=== PATIENT | male | born 1965 | race Hispanic/Latino ===

== ENCOUNTER 2024-07-08 19:03 | Emergency (ER) | payer OTHER ==
--- OUTSIDE RECORDS SUMMARY | 2024-07-08 19:08 | XMS REPORT | Continuity of Care Document ---
Author Name Unknown Address [address] [facility] [address] [place] [address] [facility] thconnect Address [address] [facility] [address] [place] [address] Care Team Providers Care Traffic Control Signaler Name Role Phone PCP, PATIENT DOES NOT HAVE A Primary Care Physic celi Unavailable KAYDEN MITTAL Attending Clinician Unavail able KAYDEN MITTAL Attending Clinician Unavail able Kayden Mittal MD Attending Clinician [phone] KAYDEN MITTAL Admitting Clinician Unavail able Payers Payer Name Policy Type Policy Number Effective Date Expirati on Date Source PERRI Agustin/ KATHY LEZAMA [id number] 2023 00:00:00 Allergies, Adverse Reactions, Alerts Allergy Name Allergy Type Status Severity Reaction(s) Onset Date Inactive Date Treating Clinician Comments Source NO KNOWN ALLERGIE S Drug Class Active [facility] Social History Social Habit Start Date Stop Date Quantity Comments Source Sexual orientation U [facility] Sex assigned at 1965 00:00:00 1965 00:00:00 [facility] Smoking Status Start Date Stop Date Source Tobacco smoking consumption unknown [facility] Medications Ordered Medication Name Filled Medication Name Start Date Stop Date Current Medication? Ordering Clinician Indication Dosage Frequency Signature (SIG) Comments Components Source Flonase Allergy Relief 50 mcg/actuati on nasal spray,suspe nsion 2023-07 2-16 00:00: 00 Yes 12mcg/a ctuatio bret Holliday Bromfed DM 2 mg-30 mg-10 mg/5 mL oral syrup 2023-07 00:00: 00 Yes 10mg/5 mL Nick Holliday azithromyci n 500 mg tablet 2023-07 00:00: 00 Yes [id number] 500mg Take 1 tablet by mouth daily. [facility] ipratropium -albuteroL (DUONEB) 0.5 mg-3 mg(2.5 mg base)/3 mL nebulizer solution 3 mL 2023-07 23:00: 00 06-14 22:18 :00 No 3mL 3 mL, Inhalation , ONCE NOW, 1 dose, On 06/14/24 at 1700, Routine [facility] magnesium sulfate in water 2 gram/50 mL (4 %) infusion 2 g 2023-07 23:00: 00 06-14 23:27 :00 No 2g 2 g, IV Piggyback, Administer over 60 Minutes, ONCE, 1 dose, On 06/14/24 at 1700, Routine [facility] azithromyci n (ZITHROMAX) tablet 500 mg 2023-07 22:15: 00 06-14 22:16 :00 No 500mg 500 mg, Oral, ONCE, 1 dose, On 06/14/24 at 1615, MARCK, Reason for Anti-Infec tive: Documented Infection, Documented Infection Site: Respirator y, Duration of Therapy: Once (ED) [facility] cefTRIAXone (ROCEPHIN) 2,000 mg in water for injection, sterile 20 mL IV Push 2023-07 22:15: 00 06-14 22:16 :00 No 2000mg 2,000 mg, Intravenou s, ONCE, 1 dose, On 06/14/24 at 1615, 20 mL, Reason for Anti-Infec tive: Empiric Therapy for Suspected Infection, Empiric Therapy Site: Respirator y, Duration of therapy: Once (ED) [facility] benzonatate (TESSALON PERLES) capsule 100 mg 2023-07 21:30: 00 06-14 21:34 :00 No 100mg 100 mg, Oral, ONCE, 1 dose, On 06/14/24 at 1530, MARCK [facility] acetaminoph en (TYLENOL) tablet 650 mg 2023-07 21:00: 00 06-14 21:09 :00 No 650mg 650 mg, Oral, ONCE, 1 dose, On 06/14/24 at 1500, MARCK [facility] NaCl 0.9% (NS) bolus infusion 1,000 mL 2023-07 21:00: 00 06-14 22:15 :00 No 1000mL at 999 mL/hr, 1,000 mL, IV Infusion, ONCE, 1 dose, On 06/14/24 at 1500, STAT [facility] benzonatate 100 mg capsule 2023-07 00:00: 00 Yes [id number] 100mg Take 1 capsule by mouth 3 (three) times daily as needed for Cough. [facility] cefdinir 300 mg capsule 2023-07 00:00: 00 06-22 05:59 :00 Yes [id number] 300mg Take 1 capsule by mouth every 12 (twelve) hours for [address] [facility] metformin 1,000 mg tablet 2023-07 00:00: 00 Yes mg Nick Holliday atorvastati n 10 mg tablet 2023-07 00:00: 00 Yes 1mg Nick Holliday lisinopril 40 mg tablet 2023-07 00:00: 00 Yes 1mg Nick Holliday Farxiga 10 mg tablet 2023-07 00:00: 00 Yes 1mg Nick Holliday glipizide 10 mg tablet 2023-07 00:00: 00 Yes 1mg Nick Holliday metformin 1,000 mg tablet 12-26 00:00: 00 Yes mg Nick Holliday atorvastati n 10 mg tablet 12-26 00:00: 00 Yes 1mg Nick Holliday lisinopril 40 mg tablet 12-26 00:00: 00 Yes 1mg Nick Holliday Farxiga 10 mg tablet 12-26 00:00: 00 Yes 1mg Nick Holliday glipizide 10 mg tablet 627 00:00: 00 Yes 1mg Nick Holliday montelukast 10 mg tablet 627 00:00: 00 Yes 1mg Nick Holliday MONTELUKAST 10MG 4-11 00:00: 00 Yes Nick Holliday montelukast 10 mg tablet 4-10 00:00: 00 Yes 1mg Nick Holliday atorvastati n 10 mg tablet 3 00:00: 00 Yes 1mg Nick Holliday Farxiga 10 mg tablet 09-26 00:00: 00 Yes 1mg Nick Holliday lisinopril 40 mg tablet 09-26 00:00: 00 Yes 1mg Nick Holliday glipizide 10 mg tablet 09-26 00:00: 00 Yes 1mg Nick Holliday USE 1 SPRAY IN EACH NOSTRIL TWICE DAILY. 2022-07 00:00: 00 Yes [id number] Nick Holliday TAKE 1 TABLET BY MOUTH DAILY 2022-07 00:00: 00 11-07 00:00 :00 No 40 Nick Holliday TAKE 1 TABLET AT BEDTIME. 2022-07 00:00: 00 11-07 00:00 :00 No 10 Nick Holliday TAKE 1 TABLET AT BEDTIME. 2022-07 00:00: 00 11-07 00:00 :00 No 10 Nick Holliday TAKE 1 TABLET BY MOUTH TWICE A DAY 2022-07 00:00: 00 11-07 00:00 :00 No 10 Nick Holliday TAKE 1 TABLET BY MOUTH EVERY MORNING 2022-07 00:00: 00 11-07 00:00 :00 No 10 Nick Holliday TAKE 5 ML EVERY 4 TO 6 HOURS NEEDED. 2022-07 00:00: 00 11-07 00:00 :00 No [id number] Nick Holliday TAKE 1 TABLET TWICE DAILY. 03-10 00:00: 00 Yes 1000 Nick Holliday TAKE 1 TABLET DAILY. 03-10 00:00: 00 2024- 05-09 00:00 :00 No 20 Nick F Mg TAKE 5 ML EVERY 4 TO 6 HOURS NEEDED. 03-10 00:00: 00 11-07 00:00 :00 No [id number] Nick F Mg TAKE 1 TABLET BY MOUTH EVERY MORNING 03-10 00:00: 00 11-07 00:00 :00 No 10 Nick F Mg TAKE 1 TABLET AT BEDTIME. 03-10 00:00: 00 11-07 00:00 :00 No 10 Nick F Mg TAKE 1 TABLET BY MOUTH TWICE A DAY 03-10 00:00: 00 11-07 00:00 :00 No 10 Nick F Mg TAKE 1 TABLET BY MOUTH DAILY 03-10 00:00: 00 11-07 00:00 :00 No 40 Nick F Mg TAKE 1 TABLET AT BEDTIME. 03-10 00:00: 00 11-07 00:00 :00 No 10 Nick F Mg TAKE 1 TABLET BY MOUTH EVERY MORNING 0 11-22 00:00: 00 11-07 00:00 :00 No 10 Nick F Mg TAKE 1 TABLET BY MOUTH DAILY 11-22 00:00: 00 11-07 00:00 :00 No 40 Nick F Mg TAKE 1 TABLET AT BEDTIME. 11-22 00:00: 00 11-07 00:00 :00 No 10 Nick F Mg TAKE 1 TABLET AT BEDTIME. - 00:00: 00 11-07 00:00 :00 No 10 Nick F Mg TAKE 1 TABLET BY MOUTH TWICE A DAY 0 -24 00:00: 00 11-07 00:00 :00 No 10 Nick F Mg TAKE 1 TABLET TWICE DAILY. -24 00:00: 00 11-07 00:00 :00 No 1000 Nick F Mg TAKE 1 TABLET BY MOUTH EVERY MORNING 0 1-21 00:00: 00 11-07 00:00 :00 No 10 Nick F Mg TAKE 5 ML EVERY 4 TO 6 HOURS NEEDED. 07-19 00:00: 00 No TAKE 2 TABLETS ON DAY 1 THEN TAKE 1 TABLET A DAY FOR 4 DAYS. 07-19 00:00: 00 No TAKE 5 ML EVERY 4 TO 6 HOURS NEEDED. 07-19 00:00: 00 11-07 00:00 :00 No Nick Holliday TAKE 2 TABLETS ON DAY 1 THEN TAKE 1 TABLET A DAY FOR 4 DAYS. 07-19 00:00: 00 11-07 00:00 :00 No Nick Sheri Holliday TAKE 1 TABLET BY MOUTH DAILY 07-18 00:00: 00 11-07 00:00 :00 No 40 Nick Sheri Holliday TAKE 1 TABLET AT BEDTIME. 07-18 00:00: 00 11-07 00:00 :00 No 10 Nick F Mg TAKE 1 TABLET TWICE DAILY. 07-18 00:00: 00 11-07 00:00 :00 No 1000 Nickbriseida Holliday TAKE 1 TABLET BY MOUTH TWICE A DAY 07-18 00:00: 00 11-07 00:00 :00 No 10 Nick Sheri Holliday TAKE 1 TABLET AT BEDTIME. 07-18 00:00: 00 11-07 00:00 :00 No 10 Nick F Mg Dose Unknown 2021-07 00:00: 00 Yes Nick F Mg Dose Unknown 2021-07 00:00: 00 Yes Nick Holliday TAKE 5 ML EVERY 4 TO 6 HOURS NEEDED. 2021-07 00:00: 00 No TAKE 2 TABLETS ON DAY 1 THEN TAKE 1 TABLET A DAY FOR 4 DAYS. 2021-07 00:00: 00 No 250 INHALE 2 PUFFS EVERY 4 TO 6 HOURS NEEDED. 2021-07 00:00: 00 11-07 00:00 :00 No [id number] Nick F Mg Dose Unknown 07-27 00:00: 00 Yes Nick F Mg Dose Unknown 07-27 00:00: 00 No lisinopril 20 mg tablet 07-27 00:00: 00 Yes 2mg Nick Holliday lisinopril 20 mg tablet 07-27 00:00: 00 No 2mg glipizide 10 mg tablet 07-27 00:00: 00 Yes 1mg Nick Holliday glipizide 10 mg tablet 07-27 00:00: 00 No 1mg Dose Unknown 07-27 00:00: 00 Yes Nick Holliday Dose Unknown 07-27 00:00: 00 No atorvastati n 10 mg tablet 07-27 00:00: 00 Yes 1mg Nick Holliday atorvastati n 10 mg tablet 07-27 00:00: 00 No 1mg fluticasone propionate 50 mcg/actuati on nasal spray,suspe nsion 07-27 00:00: 00 Yes 1mcg/ac tuation Nick Holliday fluticasone propionate 50 mcg/actuati on nasal spray,suspe nsion 07-27 00:00: 00 No 1mcg/ac tuation Bromfed DM 2 mg-30 mg-10 mg/5 mL oral syrup 07-27 00:00: 00 Yes 10mg/5 mL Nick Holliday Bromfed DM 2 mg-30 mg-10 mg/5 mL oral syrup 07-27 00:00: 00 No 10mg/5 mL Dose Unknown 07-27 00:00: 00 No lisinopril 20 mg tablet 07-27 00:00: 00 No 2mg glipizide 10 mg tablet 07-27 00:00: 00 No 1mg Dose Unknown 07-27 00:00: 00 No atorvastati n 10 mg tablet 07-27 00:00: 00 No 1mg fluticasone propionate 50 mcg/actuati on nasal spray,suspe nsion 07-27 00:00: 00 No 1mcg/ac tuation Bromfed DM 2 mg-30 mg-10 mg/5 mL oral syrup 07-27 00:00: 00 No 10mg/5 mL lisinopril 20 mg tablet 2020-07 00:00: 00 Yes 2mg Nick Holliday loratadine 10 mg tablet 2020-07 00:00: 00 Yes 1mg Nick Holliday metformin 1,000 mg tablet 2020-07 00:00: 00 Yes 1mg Nick Holliday glipizide 10 mg tablet 2020-07 00:00: 00 Yes 1mg Nick Holliday atorvastati n 10 mg tablet 2020-07 00:00: 00 Yes 1mg Nick Holliday lisinopril 20 mg tablet 2020-07 00:00: 00 No 2mg loratadine 10 mg tablet 2020-07 00:00: 00 No 1mg metformin 1,000 mg tablet 2020-07 00:00: 00 No 1mg glipizide 10 mg tablet 2020-07 00:00: 00 No 1mg atorvastati n 10 mg tablet 2020-07 00:00: 00 No 1mg lisinopril 20 mg tablet 2020-07 00:00: 00 No 2mg loratadine 10 mg tablet 2020-07 00:00: 00 No 1mg metformin 1,000 mg tablet 2020-07 00:00: 00 No 1mg glipizide 10 mg tablet 2020-07 00:00: 00 No 1mg atorvastati n 10 mg tablet 2020-07 00:00: 00 No 1mg loratadine 10 mg tablet 01-12 00:00: 00 Yes 1mg Nick Holliday lisinopril 20 mg tablet 01-12 00:00: 00 Yes 2mg Nick Holliday glipizide 10 mg tablet 01-12 00:00: 00 Yes 1mg Nick Holliday metformin 1,000 mg tablet 01-12 00:00: 00 Yes 1mg Nick Holliday atorvastati n 10 mg tablet 01-12 00:00: 00 Yes 1mg Nick Holliday fluticasone propionate 50 mcg/actuati on nasal spray,suspe nsion 01-12 00:00: 00 Yes 1mcg/ac tuation Nick Holliday Bromfed DM 2 mg-30 mg-10 mg/5 mL oral syrup 01-12 00:00: 00 Yes 10mg/5 mL Nick Holliday loratadine 10 mg tablet 01-12 00:00: 00 No 1mg lisinopril 20 mg tablet 01-12 00:00: 00 No 2mg glipizide 10 mg tablet 01-12 00:00: 00 No 1mg metformin 1,000 mg tablet 01-12 00:00: 00 No 1mg atorvastati n 10 mg tablet 01-12 00:00: 00 No 1mg fluticasone propionate 50 mcg/actuati on nasal spray,suspe nsion 01-12 00:00: 00 No 1mcg/ac tuation Bromfed DM 2 mg-30 mg-10 mg/5 mL oral syrup 01-12 00:00: 00 No 10mg/5 mL loratadine 10 mg tablet 01-12 00:00: 00 No 1mg lisinopril 20 mg tablet 01-12 00:00: 00 No 2mg glipizide 10 mg tablet 01-12 00:00: 00 No 1mg metformin 1,000 mg tablet 01-12 00:00: 00 No 1mg atorvastati n 10 mg tablet 01-12 00:00: 00 No 1mg fluticasone propionate 50 mcg/actuati on nasal spray,suspe nsion 01-12 00:00: 00 No 1mcg/ac tuation Bromfed DM 2 mg-30 mg-10 mg/5 mL oral syrup 01-12 00:00: 00 No 10mg/5 mL lisinopril 20 mg tablet 09-17 00:00: 00 Yes 2mg Nick Holliday loratadine 10 mg tablet - 00:00: 00 Yes 1mg Nick Holliday glipizide 10 mg tablet - 00:00: 00 Yes 1mg Nick Holliday metformin 1,000 mg tablet - 00:00: 00 Yes 1mg Nick Holliday atorvastati n 10 mg tablet 09-17 00:00: 00 Yes 1mg Nick Holliday fluticasone propionate 50 mcg/actuati on nasal spray,suspe nsion 09-17 00:00: 00 Yes 1mcg/ac tuation Nick Holliday Bromfed DM 2 mg-30 mg-10 mg/5 mL oral syrup 09-17 00:00: 00 Yes 10mg/5 mL Nick Holliday lisinopril 20 mg tablet 09-17 00:00: 00 No 2mg loratadine 10 mg tablet 09-17 00:00: 00 No 1mg glipizide 10 mg tablet 09-17 00:00: 00 No 1mg metformin 1,000 mg tablet 09-17 00:00: 00 No 1mg atorvastati n 10 mg tablet 09-17 00:00: 00 No 1mg fluticasone propionate 50 mcg/actuati on nasal spray,suspe nsion 09-17 00:00: 00 No 1mcg/ac tuation Bromfed DM 2 mg-30 mg-10 mg/5 mL oral syrup 09-17 00:00: 00 No 10mg/5 mL lisinopril 20 mg tablet 09-17 00:00: 00 No 2mg loratadine 10 mg tablet 09-17 00:00: 00 No 1mg glipizide 10 mg tablet 09-17 00:00: 00 No 1mg metformin 1,000 mg tablet 09-17 00:00: 00 No 1mg atorvastati n 10 mg tablet 09-17 00:00: 00 No 1mg fluticasone propionate 50 mcg/actuati on nasal spray,suspe nsion 09-17 00:00: 00 No 1mcg/ac tuation Bromfed DM 2 mg-30 mg-10 mg/5 mL oral syrup 09-17 00:00: 00 No 10mg/5 mL loratadine 10 mg tablet 2019-07 0-28 00:00: 00 Yes 1mg Nick Holliday lisinopril 20 mg tablet 2019-07 00:00: 00 Yes 2mg Nick Holliday glipizide 10 mg tablet 2019-07 00:00: 00 Yes 1mg Nick Holliday metformin 1,000 mg tablet 2019-07 00:00: 00 Yes 1mg Nick Holliday atorvastati n 10 mg tablet 2019-07 00:00: 00 Yes 1mg Nick Holliday fluticasone propionate 50 mcg/actuati on nasal spray,suspe nsion 2019-07 00:00: 00 Yes 1mcg/ac tuation Nick Holliday loratadine 10 mg tablet 2019-07 00:00: 00 No 1mg lisinopril 20 mg tablet 2019-07 00:00: 00 No 2mg glipizide 10 mg tablet 2019-07 00:00: 00 No 1mg metformin 1,000 mg tablet 2019-07 00:00: 00 No 1mg atorvastati n 10 mg tablet 2019-07 00:00: 00 No 1mg fluticasone propionate 50 mcg/actuati on nasal spray,suspe nsion 2019-07 00:00: 00 No 1mcg/ac tuation loratadine 10 mg tablet 2019-07 00:00: 00 No 1mg lisinopril 20 mg tablet 2019-07 00:00: 00 No 2mg glipizide 10 mg tablet 2019-07 00:00: 00 No 1mg metformin 1,000 mg tablet 2019-07 00:00: 00 No 1mg atorvastati n 10 mg tablet 2019-07 00:00: 00 No 1mg fluticasone propionate 50 mcg/actuati on nasal spray,suspe nsion 2019-07 00:00: 00 No 1mcg/ac tuation lisinopril 20 mg tablet 02-17 00:00: 00 Yes 2mg Nick Holliday metformin 1,000 mg tablet 02-17 00:00: 00 Yes 1mg Nick Holliday glipizide 10 mg tablet 02-17 00:00: 00 Yes 1mg Nick Holliday atorvastati n 10 mg tablet 02-17 00:00: 00 Yes 1mg Nick Holliday lisinopril 20 mg tablet 0 8- 00:00: 00 No 2mg metformin 1,000 mg tablet 0 02-17 00:00: 00 No 1mg glipizide 10 mg tablet 0 02-17 00:00: 00 No 1mg atorvastati n 10 mg tablet 0 8- 00:00: 00 No 1mg lisinopril 20 mg tablet 0 02-17 00:00: 00 No 2mg metformin 1,000 mg tablet 0 02-17 00:00: 00 No 1mg glipizide 10 mg tablet 0 8- 00:00: 00 No 1mg atorvastati n 10 mg tablet 0 02-17 00:00: 00 No 1mg lisinopril 20 mg tablet 0 3-10 00:00: 00 Yes 2mg Nick Holliday glipizide 10 mg tablet 0 3-10 00:00: 00 Yes 1mg Nick Holliday metformin 1,000 mg tablet 0 3-10 00:00: 00 Yes 1mg Nick Holliday atorvastati n 10 mg tablet 0 3-10 00:00: 00 Yes 1mg Nick Holliday lisinopril 20 mg tablet 0 3-10 00:00: 00 No 2mg glipizide 10 mg tablet 0 3-10 00:00: 00 No 1mg metformin 1,000 mg tablet 0 3-10 00:00: 00 No 1mg atorvastati n 10 mg tablet 0 3-10 00:00: 00 No 1mg lisinopril 20 mg tablet 0 3-10 00:00: 00 No 2mg glipizide 10 mg tablet 0 3-10 00:00: 00 No 1mg metformin 1,000 mg tablet 0 3-10 00:00: 00 No 1mg atorvastati n 10 mg tablet 0 3-10 00:00: 00 No 1mg prednisone 10 mg tablet 2018-07 2-21 00:00: 00 Yes 1mg Nick Holliday amoxicillin 875 mg tablet 2018-07 2-21 00:00: 00 Yes 1mg Nick Holliday prednisone 10 mg tablet 2018-07 00:00: 00 No 1mg amoxicillin 875 mg tablet 2018-07 00:00: 00 No 1mg prednisone 10 mg tablet 2018-07 00:00: 00 No 1mg amoxicillin 875 mg tablet 2018-07 00:00: 00 No 1mg glipizide 10 mg tablet 2018-07 00:00: 00 Yes 1mg Nick Holliday atorvastati n 10 mg tablet 2018-07 00:00: 00 Yes 1mg Nick Holliday glipizide 10 mg tablet 2018-07 00:00: 00 No 1mg atorvastati n 10 mg tablet 2018-07 00:00: 00 No 1mg glipizide 10 mg tablet 2018-07 00:00: 00 No 1mg atorvastati n 10 mg tablet 2018-07 00:00: 00 No 1mg lisinopril 20 mg tablet 2018-07 00:00: 00 Yes 2mg Nick Holliday metformin 1,000 mg tablet 2018-07 00:00: 00 Yes 1mg Nick Holliday lisinopril 20 mg tablet 2018-07 00:00: 00 No 2mg metformin 1,000 mg tablet 2018-07 00:00: 00 No 1mg lisinopril 20 mg tablet 2018-07 00:00: 00 No 2mg metformin 1,000 mg tablet 2018-07 00:00: 00 No 1mg lisinopril 20 mg tablet 2018-07 00:00: 00 Yes 2mg Nick Holliday metformin 1,000 mg tablet 2018-07 00:00: 00 Yes 1mg Nick Holliday glipizide 5 mg tablet 2018-07 00:00: 00 Yes 1mg Nick Holliday lisinopril 20 mg tablet 2018-07 00:00: 00 No 2mg metformin 1,000 mg tablet 2018-07 00:00: 00 No 1mg glipizide 5 mg tablet 2018-07 00:00: 00 No 1mg lisinopril 20 mg tablet 2018-07 00:00: 00 No 2mg metformin 1,000 mg tablet 2018-07 00:00: 00 No 1mg glipizide 5 mg tablet 2018-07 00:00: 00 No 1mg lisinopril 20 mg tablet 2017-07 00:00: 00 Yes 2mg Nick Holliday metformin 1,000 mg tablet 2017-07 00:00: 00 Yes 1mg Nick Holliday metformin 1,000 mg tablet 2017-07 00:00: 00 No 1mg lisinopril 20 mg tablet 2017-07 00:00: 00 No 2mg lisinopril 20 mg tablet 2017-07 00:00: 00 No 2mg metformin 1,000 mg tablet 2017-07 00:00: 00 No 1mg lisinopril 20 mg tablet 2017-07 00:00: 00 Yes 2mg Nick Holliday metformin 1,000 mg tablet 2017-07 00:00: 00 Yes 1mg Nick Holliday lisinopril 20 mg tablet 2017-07 00:00: 00 No 2mg metformin 1,000 mg tablet 2017-07 00:00: 00 No 1mg lisinopril 20 mg tablet 2017-07 00:00: 00 No 2mg metformin 1,000 mg tablet 2017-07 00:00: 00 No 1mg sulfamethox azole 800 mg-trimetho prim 160 mg tablet 03-12 00:00: 00 Yes 1mg Nick Holliday sulfamethox azole 800 mg-trimetho prim 160 mg tablet 03-12 00:00: 00 No 1mg sulfamethox azole 800 mg-trimetho prim 160 mg tablet 03-12 00:00: 00 No 1mg lisinopril 10 mg tablet 03-09 00:00: 00 Yes 1mg Nick Holliday metformin ER 500 mg tablet,exte nded release 24 hr 03-09 00:00: 00 Yes 1mg Nick Holliday glipizide 5 mg tablet 03-09 00:00: 00 Yes 1mg Nick Holliday lisinopril 10 mg tablet 03-09 00:00: 00 No 1mg metformin ER 500 mg tablet,exte nded release 24 hr 03-09 00:00: 00 No 1mg glipizide 5 mg tablet 03-09 00:00: 00 No 1mg lisinopril 10 mg tablet 03-09 00:00: 00 No 1mg metformin ER 500 mg tablet,exte nded release 24 hr 03-09 00:00: 00 No 1mg glipizide 5 mg tablet 03-09 00:00: 00 No 1mg ketorolac 10 mg tablet 03-04 00:00: 00 Yes 10mg Take 1 tablet by mouth every 6 (six) hours as needed for Pain (scale 4-6). [facility] Immunizations Ordered Immunization Name Filled Immunization Name Date Status Comments Source Influenza, seasonal, inj Influenza, seasonal, inj 2019-05-20 00:00:00 Completed Nick Holliday Td (adult) preservative Td (adult) preservative 2019-05-20 00:00:00 Completed Nick Holliday zoster zoster 2019-05-20 00:00:00 Completed Nick Holliday Influenza, seasonal, inj 2019-05-20 00:00:00 Completed Td (adult) preservative 2019-05-20 00:00:00 Completed zoster 2019-05-20 00:00:00 Completed Influenza, seasonal, inj 2019-05-20 00:00:00 Completed Td (adult) preservative 2019-05-20 00:00:00 Completed zoster 2019-05-20 00:00:00 Completed Influenza, seasonal, inj 2019-05-20 00:00:00 Completed Td (adult) preservative 2019-05-20 00:00:00 Completed zoster 2019-05-20 00:00:00 Completed Influenza, injectable Influenza, injectable 2018-06-05 00:00:00 Completed Nick Holliday Tdap Tdap 2018-06-05 00:00:00 Completed Nick Holliday Influenza, injectable 2018-06-05 00:00:00 Completed Tdap 2018-06-05 00:00:00 Completed Influenza, injectable 2018-06-05 00:00:00 Completed Tdap 2018-06-05 00:00:00 Completed Influenza, injectable 2018-06-05 00:00:00 Completed Tdap 2018-06-05 00:00:00 Completed Vital Signs Vital Name Observation Time Observation Value Comments S valentín Systolic blood pressure 2024-06-14 23:00:00 117 mm[Hg] [place] [facility] Diastolic blood pressure 2024-06-14 23:00:00 69 mm[Hg] [place] [facility] Heart rate 2024-06-14 23:00:00 102 /min [facility] Respiratory rate 2024-06-14 23:00:00 20 /min [facility] Oxygen saturation in Arterial blood by Pulse oximetry 2024-06-14 23:00:00 95 /min [place] o [facility] Body temperature 2024-06-14 20:49:00 37.22 Kathy [facility] Body height 2024-06-14 20:49:00 170.2 cm [facility] Body weight 2024-06-14 20:49:00 83.008 kg [facility] BMI 2024-06-14 20:49:00 28.66 kg/m2 [facility] BP Systolic 2024-06-16 14:51:00 119 mm[Hg] Step hen F Mg BP Diastolic 2024-06-16 14:51:00 84 mm[Hg] Neftali phen F Mg Weight Measured 2024-06-16 14:51:00 190.80 pounds Nick F Mg Height Measured 2024-06-16 14:51:00 67.00 inches Nick F Mg Body Temperature 2024-06-16 14:51:00 98.90 degrees Nick F Mg Heart Rate 2024-06-16 14:51:00 85.00 /min Susan en F Mg Respiratory Rate 2024-06-16 14:51:00 18.00 /min Nick F Mg BP Systolic 2024-04-15 08:30:00 131 mm[Hg] Step hen F Mg BP Diastolic 2024-04-15 08:30:00 83 mm[Hg] Neftali phen F Mg Weight Measured 2024-04-15 08:30:00 193.00 pounds Nick F Mg Height Measured 2024-04-15 08:30:00 67.00 inches Nick F Gm Body Temperature 2024-04-15 08:30:00 98.10 degrees Nick F Mg Heart Rate 2024-04-15 08:30:00 58.00 /min Susan en F Mg Respiratory Rate 2024-04-15 08:30:00 18.00 /min Nick F Mg BP Systolic 2023-12-27 08:51:00 136 mm[Hg] Step hen F Mg BP Diastolic 2023-12-27 08:51:00 83 mm[Hg] Neftali phen F Mg Weight Measured 2023-12-27 08:51:00 189.60 pounds Nick F Mg Height Measured 2023-12-27 08:51:00 Nick F Mg Body Temperature 2023-12-27 08:51:00 98.20 degrees Nick F Mg Heart Rate 2023-12-27 08:51:00 67.00 /min Susan en F Mg Respiratory Rate 2023-12-27 08:51:00 18.00 /min Nick F Mg BP Systolic 2023-12-27 08:04:00 136 mm[Hg] Step hen F Mg BP Diastolic 2023-12-27 08:04:00 83 mm[Hg] Neftali phen F Mg Weight Measured 2023-12-27 08:04:00 189.60 pounds Ncik F Mg Height Measured 2023-12-27 08:04:00 67.00 inches Nick F Mg Body Temperature 2023-12-27 08:04:00 98.20 degrees Nick F Mg Heart Rate 2023-12-27 08:04:00 67.00 /min Susan en F Mg Respiratory Rate 2023-12-27 08:04:00 18.00 /min Nick F Mg BP Systolic 2023-09-27 11:43:00 127 mm[Hg] Step hen F Mg BP Diastolic 2023-09-27 11:43:00 79 mm[Hg] Neftali phen F Mg Weight Measured 2023-09-27 11:43:00 189.40 pounds Nick F Mg Height Measured 2023-09-27 11:43:00 67.00 inches Nick F Mg Body Temperature 2023-09-27 11:43:00 98.00 degrees Nick F Mg Heart Rate 2023-09-27 11:43:00 71.00 /min Susan en F Mg Respiratory Rate 2023-09-27 11:43:00 19.00 /min Nick F Mg BP Systolic 2023-06-19 08:28:00 122 mm[Hg] Step hen F Mg BP Diastolic 2023-06-19 08:28:00 73 mm[Hg] Neftali phen F Mg Weight Measured 2023-06-19 08:28:00 193.80 pounds Nick F Mg Height Measured 2023-06-19 08:28:00 67.00 inches Nick F Mg Body Temperature 2023-06-19 08:28:00 98.20 degrees Nick F Mg Heart Rate 2023-06-19 08:28:00 63.00 /min Susan en F Mg Respiratory Rate 2023-06-19 08:28:00 19.00 /min Nick F Mg BP Systolic 2022-11-22 08:05:00 132 mm[Hg] Step hen F Mg BP Diastolic 2022-11-22 08:05:00 84 mm[Hg] Neftali phen F Mg Weight Measured 2022-11-22 08:05:00 197.80 pounds Nick F Mg Height Measured 2022-11-22 08:05:00 67.00 inches Nick F Mg Body Temperature 2022-11-22 08:05:00 98.10 degrees Nick F Mg Heart Rate 2022-11-22 08:05:00 62.00 /min Susan en F Mg Respiratory Rate 2022-11-22 08:05:00 18.00 /min Nick F Mg BP Systolic 2022-07-18 17:22:00 123 mm[Hg] Step hen F Mg BP Diastolic 2022-07-18 17:22:00 79 mm[Hg] Neftali phen F Mg Weight Measured 2022-07-18 17:22:00 198.40 pounds Nick F Mg Height Measured 2022-07-18 17:22:00 67.00 inches Nick F Mg Body Temperature 2022-07-18 17:22:00 98.10 degrees Nick F Mg Heart Rate 2022-07-18 17:22:00 77.00 /min Susan en F Mg Respiratory Rate 2022-07-18 17:22:00 18.00 /min Nick F Mg BP Systolic 2022-04-11 09:29:00 132 mm[Hg] Step hen F Mg BP Diastolic 2022-04-11 09:29:00 83 mm[Hg] Neftali phen F Mg Weight Measured 2022-04-11 09:29:00 201.40 pounds Nick F Mg Height Measured 2022-04-11 09:29:00 67.00 inches Nick F Mg Body Temperature 2022-04-11 09:29:00 97.80 degrees Nick F Mg Heart Rate 2022-04-11 09:29:00 57.00 /min Susan en F Mg Respiratory Rate 2022-04-11 09:29:00 Nick F Mg BP Systolic 2021-07-27 09:30:00 133 mm[Hg] Step hen F Mg BP Diastolic 2021-07-27 09:30:00 83 mm[Hg] Neftali phen F Mg Weight Measured 2021-07-27 09:30:00 203.40 pounds Nick F Mg Height Measured 2021-07-27 09:30:00 67.00 inches Nick F Mg Body Temperature 2021-07-27 09:30:00 97.30 degrees Nick F Mg Heart Rate 2021-07-27 09:30:00 71.00 /min Susan en F Mg Respiratory Rate 2021-07-27 09:30:00 16.00 /min Nick F Mg BP Systolic 2021-07-20 08:54:00 130 mm[Hg] Step hen F Mg BP Diastolic 2021-07-20 08:54:00 84 mm[Hg] Neftali phen F Mg Weight Measured 2021-07-20 08:54:00 199.00 pounds Nick F Mg Height Measured 2021-07-20 08:54:00 67.00 inches Nick F Mg Body Temperature 2021-07-20 08:54:00 98.30 degrees Nick F Mg Heart Rate 2021-07-20 08:54:00 66.00 /min Susan en F Mg Respiratory Rate 2021-07-20 08:54:00 17.00 /min Nick F Mg BP Systolic 2021-04-26 08:41:00 128 mm[Hg] Step hen F Mg BP Diastolic 2021-04-26 08:41:00 81 mm[Hg] Neftali phen F Mg Weight Measured 2021-04-26 08:41:00 199.20 pounds Nick F Mg Height Measured 2021-04-26 08:41:00 67.00 inches Nick F Mg Body Temperature 2021-04-26 08:41:00 98.40 degrees Nick F Mg Heart Rate 2021-04-26 08:41:00 68.00 /min Susan en F Mg Respiratory Rate 2021-04-26 08:41:00 16.00 /min Nick F Mg BP Systolic 2021-01-12 13:13:00 137 mm[Hg] BP Diastolic 2021-01-12 13:13:00 81 mm[Hg] Weight Measured 2021-01-12 13:13:00 202.00 pounds Height Measured 2021-01-12 13:13:00 67.00 inches Body Temperature 2021-01-12 13:13:00 97.80 degrees Heart Rate 2021-01-12 13:13:00 73.00 /min Respiratory Rate 2021-01-12 13:13:00 17.00 /min BP Systolic 2020-09-17 08:07:00 125 mm[Hg] BP Diastolic 2020-09-17 08:07:00 76 mm[Hg] Weight Measured 2020-09-17 08:07:00 205.00 pounds Height Measured 2020-09-17 08:07:00 67.00 inches Body Temperature 2020-09-17 08:07:00 98.20 degrees Heart Rate 2020-09-17 08:07:00 63.00 /min Respiratory Rate 2020-09-17 08:07:00 18.00 /min BP Systolic 2020-04-28 08:35:00 131 mm[Hg] BP Diastolic 2020-04-28 08:35:00 83 mm[Hg] Weight Measured 2020-04-28 08:35:00 206.40 pounds Height Measured 2020-04-28 08:35:00 67.00 inches Body Temperature 2020-04-28 08:35:00 97.80 degrees Heart Rate 2020-04-28 08:35:00 70.00 /min Respiratory Rate 2020-04-28 08:35:00 16.00 /min BP Systolic 2020-02-18 08:24:00 126 mm[Hg] BP Diastolic 2020-02-18 08:24:00 75 mm[Hg] Weight Measured 2020-02-18 08:24:00 204.40 pounds Height Measured 2020-02-18 08:24:00 67.00 inches Body Temperature 2020-02-18 08:24:00 97.70 degrees Heart Rate 2020-02-18 08:24:00 68.00 /min Respiratory Rate 2020-02-18 08:24:00 BP Systolic 2019-09-09 09:12:00 127 mm[Hg] BP Diastolic 2019-09-09 09:12:00 80 mm[Hg] Weight Measured 2019-09-09 09:12:00 206.60 pounds Height Measured 2019-09-09 09:12:00 67.00 inches Body Temperature 2019-09-09 09:12:00 97.80 degrees Heart Rate 2019-09-09 09:12:00 63.00 /min Respiratory Rate 2019-09-09 09:12:00 BP Systolic 2019-06-21 15:40:00 134 mm[Hg] BP Diastolic 2019-06-21 15:40:00 78 mm[Hg] Weight Measured 2019-06-21 15:40:00 204.00 pounds Height Measured 2019-06-21 15:40:00 67.00 inches Body Temperature 2019-06-21 15:40:00 98.10 degrees Heart Rate 2019-06-21 15:40:00 75.00 /min Respiratory Rate 2019-06-21 15:40:00 18.00 /min Procedures Procedure Date / Time Performed Performing Clinicia n Source XR CHEST 1 VW 2024-06-14 21:17:02 Kayden Mittal [facility] LIPASE 2024-06-14 21:04:00 Kayden Mittal [facility] MAGNESIUM 2024-06-14 21:04:00 Kayden Mittal [facility] COMP. METABOLIC PANEL ([id number]) 2024-06-14 21:04:00 Kayden Mittal [facility] ETHANOL 2024-06-14 21:04:00 Kayden Mittal [facility] CBC WITH DIFF 2024-06-14 21:04:00 Kayden Mittal [facility] RAPID STREP SCREEN FOR GROUP A 2024-06-14 21:04:00 Kayden Mittal [facility] INFLUENZA A/B RSV COVID NAAT 2024-06-14 21:04:00 Kayden Mittal [facility] N-TERMINAL PRO-BNP 2024-06-14 21:04:00 Kayden Mittal [facility] Plan of Care Planned Activity Planned Date Details Comments Source Goal Plan of Care Note [code = 39074-4] Goal Plan of Care Note [code = 12857-9] Goal Plan of Care Note [code = 41640-1] Goal Plan of Care Note [code = 75152-8] Goal Plan of Care Note [code = 37291-1] Goal Plan of Care Note [code = 75657-1] Goal Plan of Care Note [code = 54799-6] Goal Plan of Care Note [code = 31902-0] Goal Plan of Care Note [code = 85719-4] Goal Plan of Care Note [code = 53753-8] Goal Plan of Care Note [code = 63313-0] Goal Plan of Care Note [code = 19420-8] Goal Plan of Care Note [code = 80080-2] Goal Plan of Care Note [code = 22593-2] Goal Plan of Care Note [code = 25902-3] Goal Plan of Care Note [code = 36304-2] Goal Plan of Care Note [code = 85411-0] Goal Plan of Care Note [code = 72649-5] Goal Plan of Care Note [code = 76156-4] Goal Plan of Care Note [code = 28443-2] Goal Plan of Care Note [code = 48146-4] Goal Plan of Care Note [code = 26590-2] Goal Plan of Care Note [code = 12880-8] Goal Plan of Care Note [code = 62491-6] Goal Plan of Care Note [code = 40064-1] Goal Plan of Care Note [code = 34492-4] Goal Plan of Care Note [code = 05770-3] Goal Plan of Care Note [code = 10085-0] Goal Plan of Care Note [code = 72062-6] Goal Plan of Care Note [code = 39498-1] Goal Plan of Care Note [code = 54302-2] Goal Plan of Care Note [code = 37112-3] Goal Plan of Care Note [code = 92232-2] Goal Plan of Care Note [code = 90569-8] Goal Plan of Care Note [code = 24014-0] Goal Plan of Care Note [code = 24495-4] Goal Plan of Care Note [code = 92292-2] Goal Plan of Care Note [code = 40091-2] Goal Plan of Care Note [code = 21356-8] Goal Plan of Care Note [code = 42219-7] Goal Plan of Care Note [code = 49457-2] Goal Plan of Care Note [code = 83359-2] Goal Plan of Care Note [code = 63895-8] Goal Plan of Care Note [code = 01767-3] Goal Plan of Care Note [code = 84177-1] Goal Plan of Care Note [code = 42667-6] Goal Plan of Care Note [code = 33155-8] Goal Plan of Care Note [code = 26827-2] Encounters Start Date/Time End Date/Time Encounter Type Admission Type Attending [facility] Facility Care Department Encounter ID Source 2024-06-16 14:43:42 2024-06-16 14:43:42 Outpatient [facility] [id number] Nick Holliday 2024-06-16 00:00:00 2024-06-16 00:00:00 Outpatient Visit [facility] [id number] Nick Holliday 2024-06-14 14:52:00 2024-06-14 17:29:00 Emergency KAYDEN FOX JOSEPH [facility] ERT [id number] [facility] 2024-06-14 14:52:00 2024-06-14 17:29:00 Emergency Kayden Mittal [facility] [id number] [facility] 2024-04-15 08:23:19 2024-04-15 08:23:19 Outpatient S[facility] [id number] Nick Holliday 2024-04-15 00:00:00 2024-04-15 00:00:00 Outpatient Visit [facility] [id number] Nick Holliday 2023-12-27 00:00:00 2023-12-27 00:00:00 Outpatient Visit [facility] [id number] Nick Holliday 2023-10-25 08:55:26 2023-10-25 08:55:26 Outpatient [facility] [id number] Nick Holliday 2023-09-27 13:43:51 2023-09-27 13:43:51 Outpatient [facility] [id number] Nick Holliday 2023-06-19 08:18:48 2023-06-19 08:18:48 Outpatient [facility] [id number] Nick Holliday 2023-03-10 09:16:08 2023-03-10 09:16:08 Outpatient [facility] [id number] Nick Holliday 2022-11-22 08:01:27 2022-11-22 08:01:27 Outpatient [facility] [id number] Nick Holliday 2022-07-24 11:50:40 2022-07-24 11:50:40 Outpatient [facility] [id number] Nick Holliday 2022-07-19 08:38:27 2022-07-19 08:38:27 Outpatient [facility] [id number] Nick Holliday 2022-07-18 17:17:35 2022-07-18 17:17:35 Outpatient [facility] [id number] Nick Holliday 2022-07-18 00:00:00 2022-07-18 00:00:00 Outpatient Visit [id number] 2022-07-12 13:34:14 2022-07-12 13:34:14 Outpatient [facility] [id number] Nick Holliday 2022-05-29 00:00:00 2022-05-29 00:00:00 Outpatient Visit [id number] 2022-04-11 09:24:00 2022-04-11 09:24:00 Outpatient [facility] [id number] Nick Holliday 2022-04-11 00:00:00 2022-04-11 00:00:00 Outpatient Visit [id number] Results Test Description Test Time Test Comments Results Result Comments Source XR Chest 1 vw 2024-06 22:06:5 7 PROCEDURE:XR CHEST ORDERING PHYSICIAN: KAYDEN MITTAL HISTORY: ?cough; r/o pna COMPARISON: ?None available TECHNIQUE: A single view of the chest (AP or PA) was performed. FINDINGS: Support Devices: ?None.Cardiac Silhouette/Mediastinum/Isi: ?The cardiac, mediastinal, and hilarcontours are within normal limitsLungs/Pleural Spaces: ?There is patchy bibasilar airspace opacity. Thepleural spaces are clear.Chest Wall/Diaphragm/Upper Abdomen: ?The thoracic musculoskeletalstructures and the upper abdomen are within normal limits. [facility] Ethanol 2024-06 22:05:2 5 ALCOHOL<10mg/dL06/14/2024 4:05 PM [facility]10 Bwlkqbxl07-272 Toxic>100 Depression of SOLICITOR PATENT>400 Fatalities [facility]orted [facility]14 21:51:39* Test Item Value Reference Range Interpretation Comme nts MAGNESIUM (test code = 6200046108) 1.4 mg/dL 1.7-2.4 L Lab Interpretation (test cod e = 76111-9) [facility]24-06-14 21:51:19* Test Item Value Reference Range Interpretation Comme nts NA (test code = 0923809392) 137 mmol/L 135-145 K (test code = 6463769698) 4.3 mmol/L 3.5-5.0 CL (test code = 5554801777) 106 mmol/L 98-108 CO2 TOTAL (test code = 8961377794) 19 mmol/L 23-31 L AGAP (test code = 5943097112) 12 2-16 BUN (test code = 5946831975) 16 mg/dL 7-23 GLUCOSE (test code = 8309444673) 210 mg/dL 70-110 H CREATININE (test code = 2160-0) 0.84 mg/dL 0.60-1.25 TOTAL BILI (test code = 8189210959) 1.1 mg/dL 0.1-1.1 CALCIUM (test code = 9209741200) 9.3 mg/dL 8.6-10.6 T PROTEIN (test code = 1824500327) 7.2 g/dL 6.3-8.2 ALBUMIN (test code = 0215940114) 4.4 g/dL 3.5-5.0 ALK PHOS (test code = 8433816705) 56 U/L 34-122 ALTv (test code = 1742-6) 36 U/L 5-50 AST(SGOT) (test code = 1914013869) 23 U/L 13-40 eGFR (test code = 96204-0) 99.8 mL/min/1.73m2 CKD-EPI eGFR (2020). Assuming creatinine has been stable day-to-day for at least three months, the eGFR indicates Category G1 (>= 90 mL/min/1.73 m2) Lab Interpretation (test code = 62523-8) [facility] 21:50:59* Test Item Value Reference Range Interpretation Comme nts LIPASE (test code = 8110840120) 84 U/L 0-220 Lab Interpretation (test cod e = 70219-7) Normal [facility] [id number] 21:29:17* Test Item Value Reference Range Interpretation Comme nts WBC (test code = 6690-2) 16.00 4.20-10.70 H RBC (test code = 789-8) 4.90 4.26-5.52 HGB (test code = 718-7) 14.9 g/dL 12.2-16.4 HCT (test code = 4544-3) 45.0 % 38.4-49.3 MCV (test code = 787-2) 91.8 fL 81.7-95.6 MCH (test code = 785-6) 30.4 pg 26.1-32.7 MCHC (test code = 786-4) 33.1 g/dL 31.2-35.0 RDW-SD (test code = 53395-7) 42.2 fL 38.5-51.6 RDW-CV (test code = 788-0) 12.5 % 12.1-15.4 PLT (test code = 777-3) 214 150-328 MPV (test code = 99523-4) 9.7 fL 9.8-13.0 L NRBC/100 WBC (test code = 4419575470) 0.0 0.0-10.0 NRBC x10^3 (test code = 4143121352) See_Comment [Automated message] The system which generated this result transmitted reference range: 10*3/?L. The reference range was not used to interpret this result as normal/abnormal. GRAN MAT (NEUT) % (test code = 770-8) 87.9 % IMM GRAN % (test code = 9009274996) 0.90 % LYMPH % (test code = 736-9) 4.4 % MONO % (test code = 5905-5) 5.8 % EOS % (test code = 713-8) 0.4 % BASO % (test code = 706-2) 0.6 % GRAN MAT x10^3(ANC) (test code = 1510911071) 14.09 10*3/uL 1.99-6.95 H IMM GRAN x10^3 (test code = 6340441014) 0.14 10*3/uL 0.00-0.06 H LYMPH x10^3 (test code = 731-0) 0.70 10*3/uL 1.09-3.23 L MONO x10^3 (test code = 742-7) 0.92 10*3/uL 0.36-1.02 EOS x10^3 (test code = 711-2) 0.06 10*3/uL 0.06-0.53 BASO x10^3 (test code = 704-7) 0.09 10*3/uL 0.01-0.09 Lab Interpretation (test code = 08540-4) Abnormal [facility] HospitalCOMPRE[facility]ENSIVE METABOLIC [id number] 04:06:14* Test Item Value Reference Range Interpretation Comme nts GLUCOSE (test code = 2216) 131 MG/DL 70-99 H BUN (test code = 2207) 16 MG/DL 8-23 CREATININE (test code = 2213) 0.73 MG/DL 0.80-1.40 L eGFR (2020 CKD-EPI) (test code = 13634) 104 ML/MIN/1.73 >60 CALC BUN/CREAT (test code = 2234) 22 RATIO 6-28 SODIUM (test code = 2230) 139 MEQ/L 133-146 POTASSIUM (test code = 222) 4.8 MEQ/L 3.5-5.4 CHLORIDE (test code = 2214) 103 MEQ/L 95-107 CARBON DIOXIDE (test code = 2205) 25 MEQ/L 19-31 CALCIUM (test code = 2208) 9.4 MG/DL 8.5-10.5 PROTEIN, TOTAL (test code = 2228) 6.8 G/DL 6.1-8.3 ALBUMIN (test code = 2201) 4.3 G/DL 3.5-5.2 CALC GLOBULIN (test code = 2240) 2.5 G/DL 1.9-3.7 CALC A/G RATIO (test code = 2234) 1.7 RATIO 1.0-2.6 BILIRUBIN, TOTAL (test code = 2206) 0.5 MG/DL <=1.2 ALKALINE PHOSPHATASE (test code = 2203) 75 U/L 40-123 AST (test code = 2218) 25 U/L 9-50 ALT (test code = 2219) 43 U/L 5-50 LIPID [id number] 04:06:14* Test Item Value Reference Range Interpretation Comme nts CHOLESTEROL (test code = 2210) 144 MG/DL <200 TRIGLYCERIDES (test code = 2232) 79 MG/DL <150 HDL CHOLESTEROL (test code = 2219) 58 MG/DL >39 CALC LDL CHOL (test code = 2236) 70 MG/DL <100 NOTE: CALCULATED LDL IS BASED ON CHAS-HWANG METHOD WHICHINCLUDES ADJUSTABLE TRIGLYCERIDE:VLDL CHOLESTEROL RATIO.THIS FACTOR VARIES BY MEASURED TRIGLYCERIDE AND NON-HDLCHOLESTEROL CONCENTRATIONS WITH INCREASED CALCULATED LDL SEENIN HIGHER TRIGLYCERIDE OR LOWER NON-HDL SPECIMENS. FOR MOREINFORMATION, SEE CLIENT ANNOUNCEMENT AT [email or web address] RISK RATIO LDL/HDL (test code = 2238) 1.21 RATIO <3.55 HEMOGLOBIN [id number] 02:47:33* Test Item Value Reference Range Interpretation Comme nts HEMOGLOBIN A1c (test code = 03821) 6.2 % 4.2-5.6 H CYPRIOT DIABETE S ASSOCIATION GUIDELINES FOR HGB A1C: PREDIABETES/INCREASED RISK . . . . . . . 5.7-6.4% DIAGNOSIS OF DIABETES . . . . . . . . . >=6.5% WITH CONFIRMATION OR APPROPRIATE SYMPTOMS NOTE: ASSAY MAY BE AFFECTED BY HEMOGLOBINOPATHIES (SICKLE CELL ANEMIA, S-C DISEASE, OTHERS) OR ARTIFICIALLY LOWERED BY DECREASED RED CELL SURVIVAL (HEMOLYTIC ANEMIAS, BLOOD LOSS, ETC.). CONSIDER ALTERNATE TESTING OR LABORATORY CONSULTATION. UNLESS OTHERWISE INDICATED, ALL TESTING PERFORMED AT [facility] [address] [place] [address] PRICE ANALYST: DARREN GOMEZ M.D. CLIA NUMBER [id number] [facility] [place]. [id number] COMPREHENSIVE METABOLIC [id number] 00:00:00* Test Item Value Reference Range Interpretation Comme nts GLUCOSE (test code = 2217) 131 MG/DL BUN (test code = 2208) 16 MG/DL CREATININE (test code = 2214) 0.73 MG/DL eGFR (2020 CKD-EPI) (test code = 15221) 104 ML/MIN/1.73 CALC BUN/CREAT (test code = 2235) 22 RATIO SODIUM (test code = 2231) 139 MEQ/L POTASSIUM (test code = 2228) 4.8 MEQ/L CHLORIDE (test code = 2215) 103 MEQ/L CARBON DIOXIDE (test code = 2206) 25 MEQ/L CALCIUM (test code = 2209) 9.4 MG/DL PROTEIN, TOTAL (test code = 2229) 6.8 G/DL ALBUMIN (test code = 2201) 4.3 G/DL CALC GLOBULIN (test code = 2240) 2.5 G/DL CALC A/G RATIO (test code = 2234) 1.7 RATIO BILIRUBIN, TOTAL (test code = 2207) 0.5 MG/DL ALKALINE PHOSPHATASE (test code = 2204) 75 U/L AST (test code = 2218) 25 U/L ALT (test code = 2219) 43 U/L Nick Wade AustinLIPID [id number] 00:00:00* Test Item Value Reference Range Interpretation Comme nts CHOLESTEROL (test code = 2210) 144 MG/DL TRIGLYCERIDES (test code = 2232) 79 MG/DL HDL CHOLESTEROL (test code = 2220) 58 MG/DL CALC LDL CHOL (test code = 2237) 70 MG/DL RISK RATIO LDL/HDL (test cod e = 2238) 1.21 RATIO Nick HollidayHEMOGLOBIN [id number] 00:00:00* Test Item Value Reference Range Interpretation Comme nts HEMOGLOBIN A1c (test code = 29850) 6.2 % Nick HollidayCOMPREHENSIVE METABOLIC [id number] 00:00:00* Test Item Value Reference Range Interpretation Comme nts GLUCOSE (test code = 2217) 131 MG/DL BUN (test code = 2208) 16 MG/DL CREATININE (test code = 2214) 0.73 MG/DL eGFR (2020 CKD-EPI) (test code = 67498) 104 ML/MIN/1.73 CALC BUN/CREAT (test code = 2235) 22 RATIO SODIUM (test code = 2231) 139 MEQ/L POTASSIUM (test code = 2228) 4.8 MEQ/L CHLORIDE (test code = 2215) 103 MEQ/L CARBON DIOXIDE (test code = 2206) 25 MEQ/L CALCIUM (test code = 2209) 9.4 MG/DL PROTEIN, TOTAL (test code = 2229) 6.8 G/DL ALBUMIN (test code = 2201) 4.3 G/DL CALC GLOBULIN (test code = 2240) 2.5 G/DL CALC A/G RATIO (test code = 2234) 1.7 RATIO BILIRUBIN, TOTAL (test code = 2207) 0.5 MG/DL ALKALINE PHOSPHATASE (test code = 2204) 75 U/L AST (test code = 2218) 25 U/L ALT (test code = 2219) 43 U/L Nick Wade AustinLIPID [id number] 00:00:00* Test Item Value Reference Range Interpretation Comme nts CHOLESTEROL (test code = 2210) 144 MG/DL TRIGLYCERIDES (test code = 2232) 79 MG/DL HDL CHOLESTEROL (test code = 2220) 58 MG/DL CALC LDL CHOL (test code = 2237) 70 MG/DL RISK RATIO LDL/HDL (test cod e = 2238) 1.21 RATIO Nick Wade AustinHEMOGLOBIN [id number] 00:00:00* Test Item Value Reference Range Interpretation Comme nts HEMOGLOBIN A1c (test code = 31116) 6.2 % Nick Wade AustinALBUMIN/CREATININE RATIO, URINE, [id number] 05:03:21* Test Item Value Reference Range Interpretation Comme nts CREATININE, URINE, CONC. (test code = 207) 107.4 MG/DL NOT ESTAB ALBUMIN, URINE, RANDOM (test code = 73772) 0.6 MG/DL NOT ESTAB CALC ALBUMIN/CREAT, RND (test code = 41447) 6 MG/G <30 Note: Albumin/Cr eatinine ratio reference interval reflects ADA and NKF guidelines. UNLESS OTHERWISE INDICATED, ALL TESTING PERFORMED AT [facility] [address] [place] [address] PRICE ANALYST: DARREN GOMEZ M.D. CLIA NUMBER [id number] [place]. [id number] ALBUMIN/CREATININE RATIO, RANDOM [id number] 00:00:00* Test Item Value Reference Range Interpretation Comme nts CREATININE, URINE, CONC. (te st code = 207) 107.4 MG/DL ALBUMIN, URINE, RANDOM (test code = 76572) 0.6 MG/DL CALC ALBUMIN/CREAT, RND (deric t code = 83307) 6 MG/G Nick Wade AustinALBUMIN/CREATININE RATIO, RANDOM [id number] 00:00:00* Test Item Value Reference Range Interpretation Comme nts CREATININE, URINE, CONC. (te st code = 207) 107.4 MG/DL ALBUMIN, URINE, RANDOM (test code = 28590) 0.6 MG/DL CALC ALBUMIN/CREAT, RND (deric t code = 59360) 6 MG/G Nick Wade AustinHEMOGLOBIN [id number] 06:30:17* Test Item Value Reference Range Interpretation Comme nts HEMOGLOBIN A1c (test code = 85218) 6.9 % 4.2-5.6 H CYPRIOT DIABETE S ASSOCIATION GUIDELINES FOR HGB A1C: PREDIABETES/INCREASED RISK . . . . . . . 5.7-6.4% DIAGNOSIS OF DIABETES . . . . . . . . . >=6.5% WITH CONFIRMATION OR APPROPRIATE SYMPTOMS NOTE: ASSAY MAY BE AFFECTED BY HEMOGLOBINOPATHIES (SICKLE CELL ANEMIA, S-C DISEASE, OTHERS) OR ARTIFICIALLY LOWERED BY DECREASED RED CELL SURVIVAL (HEMOLYTIC ANEMIAS, BLOOD LOSS, ETC.). CONSIDER ALTERNATE TESTING OR LABORATORY CONSULTATION. LIPID [id number] 04:18:06* Test Item Value Reference Range Interpretation Comme nts CHOLESTEROL (test code = 2210) 239 MG/DL <200 H TRIGLYCERIDES (test code = 2232) 123 MG/DL <150 HDL CHOLESTEROL (test code = 2220) 57 MG/DL >39 CALC LDL CHOL (test code = 2237) 157 MG/DL <100 H NOTE: CALCULATED LDL IS BASED ON CHAS-HWANG METHOD WHICHINCLUDES ADJUSTABLE TRIGLYCERIDE:VLDL CHOLESTEROL RATIO.THIS FACTOR VARIES BY MEASURED TRIGLYCERIDE AND NON-HDLCHOLESTEROL CONCENTRATIONS WITH INCREASED CALCULATED LDL SEENIN HIGHER TRIGLYCERIDE OR LOWER NON-HDL SPECIMENS. FOR MOREINFORMATION, SEE CLIENT ANNOUNCEMENT AT [email or web address] RISK RATIO LDL/HDL (test code = 2238) 2.75 RATIO <3.55 UNLESS OTHERW ISE INDICATED, ALL TESTING PERFORMED AT [facility] [address] [place] [address] PRICE ANALYST: DARREN GOMEZ M.D. CLIA NUMBER [id number] [facility] [place]. [id number] HEMOGLOBIN [id number] 00:00:00* Test Item Value Reference Range Interpretation Comme nts HEMOGLOBIN A1c (test code = 77213) 6.9 % Nick Wade AustinLIPID [id number] 00:00:00* Test Item Value Reference Range Interpretation Comme nts CHOLESTEROL (test code = 2210) 239 MG/DL TRIGLYCERIDES (test code = 2232) 123 MG/DL HDL CHOLESTEROL (test code = 2220) 57 MG/DL CALC LDL CHOL (test code = 2237) 157 MG/DL RISK RATIO LDL/HDL (test cod e = 2238) 2.75 RATIO Nick F AustinHEMOGLOBIN [id number] 00:00:00* Test Item Value Reference Range Interpretation Comme nts HEMOGLOBIN A1c (test code = 32577) 6.9 % Nick Wade AustinLIPID [id number] 00:00:00* Test Item Value Reference Range Interpretation Comme nts CHOLESTEROL (test code = 2210) 239 MG/DL TRIGLYCERIDES (test code = 2232) 123 MG/DL HDL CHOLESTEROL (test code = 2220) 57 MG/DL CALC LDL CHOL (test code = 2237) 157 MG/DL RISK RATIO LDL/HDL (test cod e = 2238) 2.75 RATIO Nick Wade AustinHEMOGLOBIN [id number] 00:00:00* Test Item Value Reference Range Interpretation Comme nts HEMOGLOBIN A1c (test code = 86808) 6.9 % Nick Wade AustinLIPID [id number] 00:00:00* Test Item Value Reference Range Interpretation Comme nts CHOLESTEROL (test code = 2210) 239 MG/DL TRIGLYCERIDES (test code = 2232) 123 MG/DL HDL CHOLESTEROL (test code = 2220) 57 MG/DL CALC LDL CHOL (test code = 2237) 157 MG/DL RISK RATIO LDL/HDL (test cod e = 2238) 2.75 RATIO Nick Wade AustinHEMOGLOBIN [id number] 07:04:14* Test Item Value Reference Range Interpretation Comme nts HEMOGLOBIN A1c (test code = 57150) 7.2 % 4.2-5.6 H [employer] S [employer]ATION GUIDELINES FOR HGB A1C: PREDIABETES/INCREASED RISK . . . . . . . 5.7-6.4% DIAGNOSIS OF DIABETES . . . . . . . . . >=6.5% WITH CONFIRMATION OR APPROPRIATE SYMPTOMS NOTE: ASSAY MAY BE AFFECTED BY HEMOGLOBINOPATHIES (SICKLE CELL ANEMIA, S-C DISEASE, OTHERS) OR ARTIFICIALLY LOWERED BY DECREASED RED CELL SURVIVAL (HEMOLYTIC ANEMIAS, BLOOD LOSS, ETC.). CONSIDER ALTERNATE TESTING OR LABORATORY CONSULTATION. LIPID [id number] 03:31:47* Test Item Value Reference Range Interpretation Comme nts CHOLESTEROL (test code = 2210) 188 MG/DL <200 TRIGLYCERIDES (test code = 2232) 119 MG/DL <150 HDL CHOLESTEROL (test code = 2220) 55 MG/DL >39 CALC LDL CHOL (test code = 2237) 110 MG/DL <100 H NOTE: CALCULATED LDL IS BASED ON CHAS-HWANG METHOD WHICHINCLUDES ADJUSTABLE TRIGLYCERIDE:VLDL CHOLESTEROL RATIO.THIS FACTOR VARIES BY MEASURED TRIGLYCERIDE AND NON-HDLCHOLESTEROL CONCENTRATIONS WITH INCREASED CALCULATED LDL SEENIN HIGHER TRIGLYCERIDE OR LOWER NON-HDL SPECIMENS. FOR MOREINFORMATION, SEE CLIENT ANNOUNCEMENT AT [email or web address] RISK RATIO LDL/HDL (test code = 2237) 2.00 RATIO <3.55 COMPREHENSIVE METABOLIC [id number] 03:31:47* Test Item Value Reference Range Interpretation Comme nts GLUCOSE (test code = 2216) 182 MG/DL 70-99 H BUN (test code = 2207) 14 MG/DL 6-20 CREATININE (test code = 2213) 0.70 MG/DL 0.80-1.40 L eGFR (2020 CKD-EPI) (test code = 43976) 106 ML/MIN/1.73 >60 CALC BUN/CREAT (test code = 2235) 20 RATIO 6-28 SODIUM (test code = 2230) 140 MEQ/L 133-146 POTASSIUM (test code = 2228) 4.9 MEQ/L 3.5-5.4 CHLORIDE (test code = 2215) 100 MEQ/L 95-107 CARBON DIOXIDE (test code = 220) 25 MEQ/L 19-31 CALCIUM (test code = 220) 9.6 MG/DL 8.5-10.5 PROTEIN, TOTAL (test code = 222) 6.6 G/DL 6.1-8.3 ALBUMIN (test code = 2200) 4.6 G/DL 3.5-5.2 CALC GLOBULIN (test code = 2240) 2.0 G/DL 1.9-3.7 CALC A/G RATIO (test code = 2234) 2.3 RATIO 1.0-2.6 BILIRUBIN, TOTAL (test code = 220) 0.5 MG/DL See_Comment [Automated me ssage] The system which generated this result transmitted reference range: <=1.2. The reference range was not used to interpret this result as normal/abnormal. ALKALINE PHOSPHATASE (test code = 4) 73 U/L 40-123 AST (test code = 2218) 27 U/L 9-50 ALT (test code = 2219) 68 U/L 5-50 H UNLESS OTHERWISE INDICATED, ALL TESTING PERFORMED AT [facility] [address] [place] [address] PRICE ANALYST: DARREN GOMEZ M.D. [place] NUMBER [id number] [facility] [place]. [id number] HEMOGLOBIN [id number] 00:00:00* Test Item Value Reference Range Interpretation Comme [facility] HEMOGLOBIN A1c (test code = 30417) 7.2 % Nick HollidayLIPID [id number] 00:00:00* Test Item Value Reference Range Interpretation Comme nts CHOLESTEROL (test code = 2210) 188 MG/DL TRIGLYCERIDES (test code = 2232) 119 MG/DL HDL CHOLESTEROL (test code = 2220) 55 MG/DL CALC LDL CHOL (test code = 2237) 110 MG/DL RISK RATIO LDL/HDL (test cod e = 2238) 2.00 RATIO Nick HollidayCOMPREHENSIVE METABOLIC [id number] 00:00:00* Test Item Value Reference Range Interpretation Comme nts GLUCOSE (test code = 2217) 182 MG/DL BUN (test code = 2208) 14 MG/DL CREATININE (test code = 2214) 0.70 MG/DL eGFR (2020 CKD-EPI) (test code = 50338) 106 ML/MIN/1.73 CALC BUN/CREAT (test code = 2235) 20 RATIO SODIUM (test code = 2231) 140 MEQ/L POTASSIUM (test code = 2228) 4.9 MEQ/L CHLORIDE (test code = 2215) 100 MEQ/L CARBON DIOXIDE (test code = 2206) 25 MEQ/L CALCIUM (test code = 2209) 9.6 MG/DL PROTEIN, TOTAL (test code = 2229) 6.6 G/DL ALBUMIN (test code = 2201) 4.6 G/DL CALC GLOBULIN (test code = 2240) 2.0 G/DL CALC A/G RATIO (test code = 2234) 2.3 RATIO BILIRUBIN, TOTAL (test code = 2207) 0.5 MG/DL ALKALINE PHOSPHATASE (test code = 2204) 73 U/L AST (test code = 2218) 27 U/L ALT (test code = 2219) 68 U/L Nick HollidayHEMOGLOBIN [id number] 00:00:00* Test Item Value Reference Range Interpretation Comme nts HEMOGLOBIN A1c (test code = 87839) 7.2 % Nick HollidayLIPID [id number] 00:00:00* Test Item Value Reference Range Interpretation Comme nts CHOLESTEROL (test code = 2210) 188 MG/DL TRIGLYCERIDES (test code = 2232) 119 MG/DL HDL CHOLESTEROL (test code = 2220) 55 MG/DL CALC LDL CHOL (test code = 2237) 110 MG/DL RISK RATIO LDL/HDL (test cod e = 2238) 2.00 RATIO Nick HollidayCOMPREHENSIVE METABOLIC [id number] 00:00:00* Test Item Value Reference Range Interpretation Comme nts GLUCOSE (test code = 2217) 182 MG/DL BUN (test code = 2208) 14 MG/DL CREATININE (test code = 2214) 0.70 MG/DL eGFR (2020 CKD-EPI) (test code = 69454) 106 ML/MIN/1.73 CALC BUN/CREAT (test code = 2235) 20 RATIO SODIUM (test code = 2231) 140 MEQ/L POTASSIUM (test code = 2228) 4.9 MEQ/L CHLORIDE (test code = 2215) 100 MEQ/L CARBON DIOXIDE (test code = 2206) 25 MEQ/L CALCIUM (test code = 2209) 9.6 MG/DL PROTEIN, TOTAL (test code = 2229) 6.6 G/DL ALBUMIN (test code = 2201) 4.6 G/DL CALC GLOBULIN (test code = 2240) 2.0 G/DL CALC A/G RATIO (test code = 2234) 2.3 RATIO BILIRUBIN, TOTAL (test code = 2207) 0.5 MG/DL ALKALINE PHOSPHATASE (test code = 2204) 73 U/L AST (test code = 2218) 27 U/L ALT (test code = 2219) 68 U/L Nick HollidayHEMOGLOBIN [id number] 00:00:00* Test Item Value Reference Range Interpretation Comme nts HEMOGLOBIN A1c (test code = 29014) 7.2 % Nick HollidayLIPID [id number] 00:00:00* Test Item Value Reference Range Interpretation Comme nts CHOLESTEROL (test code = 2210) 188 MG/DL TRIGLYCERIDES (test code = 2232) 119 MG/DL HDL CHOLESTEROL (test code = 2220) 55 MG/DL CALC LDL CHOL (test code = 2237) 110 MG/DL RISK RATIO LDL/HDL (test cod e = 2238) 2.00 RATIO Nick HollidayCOMPREHENSIVE METABOLIC [id number] 00:00:00* Test Item Value Reference Range Interpretation Comme nts GLUCOSE (test code = 2217) 182 MG/DL BUN (test code = 2208) 14 MG/DL CREATININE (test code = 2214) 0.70 MG/DL eGFR (2020 CKD-EPI) (test code = 46203) 106 ML/MIN/1.73 CALC BUN/CREAT (test code = 2235) 20 RATIO SODIUM (test code = 2231) 140 MEQ/L POTASSIUM (test code = 2228) 4.9 MEQ/L CHLORIDE (test code = 2215) 100 MEQ/L CARBON DIOXIDE (test code = 2206) 25 MEQ/L CALCIUM (test code = 2209) 9.6 MG/DL PROTEIN, TOTAL (test code = 2229) 6.6 G/DL ALBUMIN (test code = 2201) 4.6 G/DL CALC GLOBULIN (test code = 2240) 2.0 G/DL CALC A/G RATIO (test code = 2234) 2.3 RATIO BILIRUBIN, TOTAL (test code = 2207) 0.5 MG/DL ALKALINE PHOSPHATASE (test code = 2204) 73 U/L AST (test code = 2218) 27 U/L ALT (test code = 2219) 68 U/L Nick HollidayHEMOGLOBIN [id number] 03:40:13* Test Item Value Reference Range Interpretation Comme nts HEMOGLOBIN A1c (test code = 85465) 9.0 % 4.2-5.6 H CYPRIOT DIABETE S ASSOCIATION GUIDELINES FOR HGB A1C: PREDIABETES/INCREASED RISK . . . . . . . 5.7-6.4% DIAGNOSIS OF DIABETES . . . . . . . . . >=6.5% WITH CONFIRMATION OR APPROPRIATE SYMPTOMS NOTE: ASSAY MAY BE AFFECTED BY HEMOGLOBINOPATHIES (SICKLE CELL ANEMIA, S-C DISEASE, OTHERS) OR ARTIFICIALLY LOWERED BY DECREASED RED CELL SURVIVAL (HEMOLYTIC ANEMIAS, BLOOD LOSS, ETC.). CONSIDER ALTERNATE TESTING OR LABORATORY CONSULTATION. COMPREHENSIVE METABOLIC [id number] 03:04:01* Test Item Value Reference Range Interpretation Comme nts GLUCOSE (test code = 2217) 225 MG/DL 70-99 H BUN (test code = 2207) 17 MG/DL 6-20 CREATININE (test code = 2213) 0.76 MG/DL 0.80-1.40 L eGFR (2020 CKD-EPI) (test code = ) 104 ML/MIN/1.73 >60 CALC BUN/CREAT (test code = 2234) 22 RATIO 6-28 SODIUM (test code = 2230) 136 MEQ/L 133-146 POTASSIUM (test code = 2227) 4.6 MEQ/L 3.5-5.4 CHLORIDE (test code = 2214) 102 MEQ/L 95-107 CARBON DIOXIDE (test code = 2205) 23 MEQ/L 19-31 CALCIUM (test code = 2208) 9.4 MG/DL 8.5-10.5 PROTEIN, TOTAL (test code = 2228) 6.6 G/DL 6.1-8.3 ALBUMIN (test code = 2200) 4.5 G/DL 3.5-5.2 CALC GLOBULIN (test code = 2239) 2.1 G/DL 1.9-3.7 CALC A/G RATIO (test code = 2233) 2.1 RATIO 1.0-2.6 BILIRUBIN, TOTAL (test code = 2206) 0.5 MG/DL See_Comment [Automated me ssage] The system which generated this result transmitted reference range: <=1.2. The reference range was not used to interpret this result as normal/abnormal. ALKALINE PHOSPHATASE (test code = 2203) 74 U/L 40-123 AST (test code = 2217) 32 U/L 9-50 ALT (test code = 2218) 85 U/L 5-50 H LIPID [id number] 03:04:01* Test Item Value Reference Range Interpretation Comme nts CHOLESTEROL (test code = 2209) 203 MG/DL <200 H TRIGLYCERIDES (test code = 2231) 113 MG/DL <150 HDL CHOLESTEROL (test code = 2219) 50 MG/DL >39 CALC LDL CHOL (test code = 2236) 131 MG/DL <100 H NOTE: CALCULATED LDL IS BASED ON CHAS-HWANG METHOD WHICHINCLUDES ADJUSTABLE TRIGLYCERIDE:VLDL CHOLESTEROL RATIO.THIS FACTOR VARIES BY MEASURED TRIGLYCERIDE AND NON-HDLCHOLESTEROL CONCENTRATIONS WITH INCREASED CALCULATED LDL SEENIN HIGHER TRIGLYCERIDE OR LOWER NON-HDL SPECIMENS. FOR MOREINFORMATION, SEE CLIENT ANNOUNCEMENT AT [email or web address] RISK RATIO LDL/HDL (test code = 2238) 2.62 RATIO <3.55 UNLESS OTHERW ISE INDICATED, ALL TESTING PERFORMED ATCLINICAL PATHOLOGY [email or web address] [address] [place] [id number] PRICE ANALYST: JERALD ODONNELL M.D. CLIA NUMBER [id number] [facility] [place]. [id number] COMPREHENSIVE METABOLIC [id number] 00:00:00* Test Item Value Reference Range Interpretation Comme nts GLUCOSE (test code = 2217) 225 MG/DL BUN (test code = 2208) 17 MG/DL CREATININE (test code = 2214) 0.76 MG/DL eGFR (2020 CKD-EPI) (test code = 01940) 104 ML/MIN/1.73 CALC BUN/CREAT (test code = 2235) 22 RATIO SODIUM (test code = 2231) 136 MEQ/L POTASSIUM (test code = 2228) 4.6 MEQ/L CHLORIDE (test code = 2215) 102 MEQ/L CARBON DIOXIDE (test code = 2206) 23 MEQ/L CALCIUM (test code = 2209) 9.4 MG/DL PROTEIN, TOTAL (test code = 2229) 6.6 G/DL ALBUMIN (test code = 2201) 4.5 G/DL CALC GLOBULIN (test code = 2240) 2.1 G/DL CALC A/G RATIO (test code = 2234) 2.1 RATIO BILIRUBIN, TOTAL (test code = 2207) 0.5 MG/DL ALKALINE PHOSPHATASE (test code = 2204) 74 U/L AST (test code = 2218) 32 U/L ALT (test code = 2219) 85 U/L Nick HollidayHEMOGLOBIN [id number] 00:00:00* Test Item Value Reference Range Interpretation Comme nts HEMOGLOBIN A1c (test code = 19190) 9.0 % Nick HollidayLIPID [id number] 00:00:00* Test Item Value Reference Range Interpretation Comme nts CHOLESTEROL (test code = 2210) 203 MG/DL TRIGLYCERIDES (test code = 2232) 113 MG/DL HDL CHOLESTEROL (test code = 2220) 50 MG/DL CALC LDL CHOL (test code = 2237) 131 MG/DL RISK RATIO LDL/HDL (test cod e = 2238) 2.62 RATIO Nick HollidayCOMPREHENSIVE METABOLIC [id number] 00:00:00* Test Item Value Reference Range Interpretation Comme nts GLUCOSE (test code = 2217) 225 MG/DL BUN (test code = 2208) 17 MG/DL CREATININE (test code = 2214) 0.76 MG/DL eGFR (2020 CKD-EPI) (test code = 99119) 104 ML/MIN/1.73 CALC BUN/CREAT (test code = 2235) 22 RATIO SODIUM (test code = 2231) 136 MEQ/L POTASSIUM (test code = 2228) 4.6 MEQ/L CHLORIDE (test code = 2215) 102 MEQ/L CARBON DIOXIDE (test code = 2206) 23 MEQ/L CALCIUM (test code = 2209) 9.4 MG/DL PROTEIN, TOTAL (test code = 2229) 6.6 G/DL ALBUMIN (test code = 2201) 4.5 G/DL CALC GLOBULIN (test code = 2240) 2.1 G/DL CALC A/G RATIO (test code = 2234) 2.1 RATIO BILIRUBIN, TOTAL (test code = 2207) 0.5 MG/DL ALKALINE PHOSPHATASE (test code = 2204) 74 U/L AST (test code = 2218) 32 U/L ALT (test code = 2219) 85 U/L Nick HollidayHEMOGLOBIN [id number] 00:00:00* Test Item Value Reference Range Interpretation Comme nts HEMOGLOBIN A1c (test code = 96358) 9.0 % Nick Wade AustinLIPID [id number] 00:00:00* Test Item Value Reference Range Interpretation Comme nts CHOLESTEROL (test code = 2210) 203 MG/DL TRIGLYCERIDES (test code = 2232) 113 MG/DL HDL CHOLESTEROL (test code = 2220) 50 MG/DL CALC LDL CHOL (test code = 2237) 131 MG/DL RISK RATIO LDL/HDL (test cod e = 2238) 2.62 RATIO Nick HollidayCOMPREHENSIVE METABOLIC [id number] 00:00:00* Test Item Value Reference Range Interpretation Comme nts GLUCOSE (test code = 2217) 225 MG/DL BUN (test code = 2208) 17 MG/DL CREATININE (test code = 2214) 0.76 MG/DL eGFR (2020 CKD-EPI) (test code = 88894) 104 ML/MIN/1.73 CALC BUN/CREAT (test code = 2235) 22 RATIO SODIUM (test code = 2231) 136 MEQ/L POTASSIUM (test code = 2228) 4.6 MEQ/L CHLORIDE (test code = 2215) 102 MEQ/L CARBON DIOXIDE (test code = 2206) 23 MEQ/L CALCIUM (test code = 2209) 9.4 MG/DL PROTEIN, TOTAL (test code = 2229) 6.6 G/DL ALBUMIN (test code = 2201) 4.5 G/DL CALC GLOBULIN (test code = 2240) 2.1 G/DL CALC A/G RATIO (test code = 2234) 2.1 RATIO BILIRUBIN, TOTAL (test code = 2207) 0.5 MG/DL ALKALINE PHOSPHATASE (test code = 2204) 74 U/L AST (test code = 2218) 32 U/L ALT (test code = 2219) 85 U/L Nick HollidayHEMOGLOBIN [id number] 00:00:00* Test Item Value Reference Range Interpretation Comme nts HEMOGLOBIN A1c (test code = 38370) 9.0 % Nick HollidayLIPID [id number] 00:00:00* Test Item Value Reference Range Interpretation Comme nts CHOLESTEROL (test code = 2210) 203 MG/DL TRIGLYCERIDES (test code = 2232) 113 MG/DL HDL CHOLESTEROL (test code = 2220) 50 MG/DL CALC LDL CHOL (test code = 2237) 131 MG/DL RISK RATIO LDL/HDL (test cod e = 2238) 2.62 RATIO Nick HollidayCOMPREHENSIVE METABOLIC [id number] 04:52:22* Test Item Value Reference Range Interpretation Comme nts GLUCOSE (test code = 2217) 162 MG/DL 70-99 H BUN (test code = 2208) 14 MG/DL 6-20 CREATININE (test code = 2214) 0.67 MG/DL 0.80-1.40 L eGFR (2020 CKD-EPI) (test code = 85284) 109 ML/MIN/1.73 >60 CALC BUN/CREAT (test code = 2235) 21 RATIO 6-28 SODIUM (test code = 2230) 139 MEQ/L 133-146 POTASSIUM (test code = 2227) 4.7 MEQ/L 3.5-5.4 CHLORIDE (test code = 5) 103 MEQ/L 95-107 CARBON DIOXIDE (test code = 2205) 22 MEQ/L 19-31 CALCIUM (test code = 2208) 9.7 MG/DL 8.5-10.5 PROTEIN, TOTAL (test code = 2228) 7.1 G/DL 6.1-8.3 ALBUMIN (test code = 2200) 4.7 G/DL 3.5-5.2 CALC GLOBULIN (test code = 0) 2.4 G/DL 1.9-3.7 CALC A/G RATIO (test code = 2233) 2.0 RATIO 1.0-2.6 BILIRUBIN, TOTAL (test code = 2206) 0.4 MG/DL See_Comment [Automated me ssage] The system which generated this result transmitted reference range: <=1.2. The reference range was not used to interpret this result as normal/abnormal. ALKALINE PHOSPHATASE (test code = 2203) 75 U/L 40-123 AST (test code = 2217) 21 U/L 9-50 ALT (test code = 221) 38 U/L 5-50 LIPID [id number] 04:52:22* Test Item Value Reference Range Interpretation Comme nts CHOLESTEROL (test code = 221) 156 MG/DL <200 TRIGLYCERIDES (test code = 2232) 81 MG/DL <150 HDL CHOLESTEROL (test code = 2219) 48 MG/DL >39 CALC LDL CHOL (test code = 2236) 91 MG/DL <100 NOTE: CALCULATED LDL IS BASED ON CHAS-HWANG METHOD WHICHINCLUDES ADJUSTABLE TRIGLYCERIDE:VLDL CHOLESTEROL RATIO.THIS FACTOR VARIES BY MEASURED TRIGLYCERIDE AND NON-HDLCHOLESTEROL CONCENTRATIONS WITH INCREASED CALCULATED LDL SEENIN HIGHER TRIGLYCERIDE OR LOWER NON-HDL SPECIMENS. FOR MOREINFORMATION, SEE CLIENT ANNOUNCEMENT AT [email or web address] RISK RATIO LDL/HDL (test code = 223) 1.90 RATIO <3.55 UNLESS OTHERW ISE INDICATED, ALL TESTING PERFORMED ATCLINICAL PATHOLOGY [email or web address] [address] [place] [address] PRICE ANALYST: JERALD ODONNELL M.D. CLIA NUMBER [id number] [facility] [place] [place]. [id number] HEMOGLOBIN [id number] 03:21:28* Test Item Value Reference Range Interpretation Comme [facility] HEMOGLOBIN A1c (test code = 11951) 7.6 % 4.2-5.6 H CYPRIOT DIABETE S ASSOCIATION GUIDELINES FOR HGB A1C: PREDIABETES/INCREASED RISK . . . . . . . 5.7-6.4% DIAGNOSIS OF DIABETES . . . . . . . . . >=6.5% WITH CONFIRMATION OR APPROPRIATE SYMPTOMS NOTE: ASSAY MAY BE AFFECTED BY HEMOGLOBINOPATHIES (SICKLE CELL ANEMIA, S-C DISEASE, OTHERS) OR ARTIFICIALLY LOWERED BY DECREASED RED CELL SURVIVAL (HEMOLYTIC ANEMIAS, BLOOD LOSS, ETC.). CONSIDER ALTERNATE TESTING OR LABORATORY CONSULTATION. HEMOGLOBIN [id number] 00:00:00* Test Item Value Reference Range Interpretation Comme [facility] HEMOGLOBIN A1c (test code = 12557) 7.6 % Nick Wade WilmingtonCOMPREHENSIVE METABOLIC [id number] 00:00:00* Test Item Value Reference Range Interpretation Comme nts GLUCOSE (test code = 2217) 162 MG/DL BUN (test code = 2208) 14 MG/DL CREATININE (test code = 2214) 0.67 MG/DL eGFR (2020 CKD-EPI) (test code = 67489) 109 ML/MIN/1.73 CALC BUN/CREAT (test code = 2235) 21 RATIO SODIUM (test code = 2231) 139 MEQ/L POTASSIUM (test code = 2228) 4.7 MEQ/L CHLORIDE (test code = 2215) 103 MEQ/L CARBON DIOXIDE (test code = 2206) 22 MEQ/L CALCIUM (test code = 2209) 9.7 MG/DL PROTEIN, TOTAL (test code = 2229) 7.1 G/DL ALBUMIN (test code = 2201) 4.7 G/DL CALC GLOBULIN (test code = 2240) 2.4 G/DL CALC A/G RATIO (test code = 2234) 2.0 RATIO BILIRUBIN, TOTAL (test code = 2207) 0.4 MG/DL ALKALINE PHOSPHATASE (test code = 2204) 75 U/L AST (test code = 2218) 21 U/L ALT (test code = 2219) 38 U/L Nick Wade WilmingtonCOMPREHENSIVE METABOLIC [id number] 00:00:00* Test Item Value Reference Range Interpretation Comme nts GLUCOSE (test code = 2217) 162 MG/DL BUN (test code = 2208) 14 MG/DL CREATININE (test code = 2214) 0.67 MG/DL eGFR (2020 CKD-EPI) (test code = 78899) 109 ML/MIN/1.73 CALC BUN/CREAT (test code = 2235) 21 RATIO SODIUM (test code = 2231) 139 MEQ/L POTASSIUM (test code = 2228) 4.7 MEQ/L CHLORIDE (test code = 2215) 103 MEQ/L CARBON DIOXIDE (test code = 2206) 22 MEQ/L CALCIUM (test code = 2209) 9.7 MG/DL PROTEIN, TOTAL (test code = 2229) 7.1 G/DL ALBUMIN (test code = 2201) 4.7 G/DL CALC GLOBULIN (test code = 2240) 2.4 G/DL CALC A/G RATIO (test code = 2234) 2.0 RATIO BILIRUBIN, TOTAL (test code = 2207) 0.4 MG/DL ALKALINE PHOSPHATASE (test code = 2204) 75 U/L AST (test code = 2218) 21 U/L ALT (test code = 2219) 38 U/L LIPID [id number] 00:00:00* Test Item Value Reference Range Interpretation Comme nts CHOLESTEROL (test code = 2210) 156 MG/DL TRIGLYCERIDES (test code = 2232) 81 MG/DL HDL CHOLESTEROL (test code = 2220) 48 MG/DL CALC LDL CHOL (test code = 2237) 91 MG/DL RISK RATIO LDL/HDL (test cod e = 2238) 1.90 RATIO LIPID [id number] 00:00:00* Test Item Value Reference Range Interpretation Comme nts CHOLESTEROL (test code = 2210) 156 MG/DL TRIGLYCERIDES (test code = 2232) 81 MG/DL HDL CHOLESTEROL (test code = 2220) 48 MG/DL CALC LDL CHOL (test code = 2237) 91 MG/DL RISK RATIO LDL/HDL (test cod e = 2238) 1.90 RATIO Nick Wade AustinHEMOGLOBIN [id number] 00:00:00* Test Item Value Reference Range Interpretation Comme nts HEMOGLOBIN A1c (test code = 67441) 7.6 % Nick Wade AustinHEMOGLOBIN [id number] 00:00:00* Test Item Value Reference Range Interpretation Comme nts HEMOGLOBIN A1c (test code = 49748) 7.6 % COMPREHENSIVE METABOLIC [id number] 00:00:00* Test Item Value Reference Range Interpretation Comme nts GLUCOSE (test code = 2217) 162 MG/DL BUN (test code = 2208) 14 MG/DL CREATININE (test code = 2214) 0.67 MG/DL eGFR (2020 CKD-EPI) (test code = 05300) 109 ML/MIN/1.73 CALC BUN/CREAT (test code = 2235) 21 RATIO SODIUM (test code = 2231) 139 MEQ/L POTASSIUM (test code = 2228) 4.7 MEQ/L CHLORIDE (test code = 2215) 103 MEQ/L CARBON DIOXIDE (test code = 2206) 22 MEQ/L CALCIUM (test code = 2209) 9.7 MG/DL PROTEIN, TOTAL (test code = 2229) 7.1 G/DL ALBUMIN (test code = 2201) 4.7 G/DL CALC GLOBULIN (test code = 2240) 2.4 G/DL CALC A/G RATIO (test code = 2234) 2.0 RATIO BILIRUBIN, TOTAL (test code = 2207) 0.4 MG/DL ALKALINE PHOSPHATASE (test code = 2204) 75 U/L AST (test code = 2218) 21 U/L ALT (test code = 2219) 38 U/L COMPREHENSIVE METABOLIC [id number] 00:00:00* Test Item Value Reference Range Interpretation Comme nts GLUCOSE (test code = 2217) 162 MG/DL BUN (test code = 2208) 14 MG/DL CREATININE (test code = 2214) 0.67 MG/DL eGFR (2020 CKD-EPI) (test code = 02835) 109 ML/MIN/1.73 CALC BUN/CREAT (test code = 2235) 21 RATIO SODIUM (test code = 2231) 139 MEQ/L POTASSIUM (test code = 2228) 4.7 MEQ/L CHLORIDE (test code = 2215) 103 MEQ/L CARBON DIOXIDE (test code = 2206) 22 MEQ/L CALCIUM (test code = 2209) 9.7 MG/DL PROTEIN, TOTAL (test code = 2229) 7.1 G/DL ALBUMIN (test code = 2201) 4.7 G/DL CALC GLOBULIN (test code = 2240) 2.4 G/DL CALC A/G RATIO (test code = 2234) 2.0 RATIO BILIRUBIN, TOTAL (test code = 2207) 0.4 MG/DL ALKALINE PHOSPHATASE (test code = 2204) 75 U/L AST (test code = 2218) 21 U/L ALT (test code = 2219) 38 U/L Nick Wade AustinLIPID [id number] 00:00:00* Test Item Value Reference Range Interpretation Comme nts CHOLESTEROL (test code = 2210) 156 MG/DL TRIGLYCERIDES (test code = 2232) 81 MG/DL HDL CHOLESTEROL (test code = 2220) 48 MG/DL CALC LDL CHOL (test code = 2237) 91 MG/DL RISK RATIO LDL/HDL (test cod e = 2238) 1.90 RATIO Nick HollidayLIPID [id number] 00:00:00* Test Item Value Reference Range Interpretation Comme nts CHOLESTEROL (test code = 2210) 156 MG/DL TRIGLYCERIDES (test code = 2232) 81 MG/DL HDL CHOLESTEROL (test code = 2220) 48 MG/DL CALC LDL CHOL (test code = 2237) 91 MG/DL RISK RATIO LDL/HDL (test cod e = 2238) 1.90 RATIO HEMOGLOBIN [id number] 00:00:00* Test Item Value Reference Range Interpretation Comme nts HEMOGLOBIN A1c (test code = 18798) 7.6 % HEMOGLOBIN [id number] 00:00:00* Test Item Value Reference Range Interpretation Comme nts HEMOGLOBIN A1c (test code = 34077) 7.6 % Nick HollidayCOMPREHENSIVE METABOLIC [id number] 00:00:00* Test Item Value Reference Range Interpretation Comme nts GLUCOSE (test code = 2217) 162 MG/DL BUN (test code = 2208) 14 MG/DL CREATININE (test code = 2214) 0.67 MG/DL eGFR (2020 CKD-EPI) (test code = 83237) 109 ML/MIN/1.73 CALC BUN/CREAT (test code = 2235) 21 RATIO SODIUM (test code = 2231) 139 MEQ/L POTASSIUM (test code = 2228) 4.7 MEQ/L CHLORIDE (test code = 2215) 103 MEQ/L CARBON DIOXIDE (test code = 2206) 22 MEQ/L CALCIUM (test code = 2209) 9.7 MG/DL PROTEIN, TOTAL (test code = 2229) 7.1 G/DL ALBUMIN (test code = 2201) 4.7 G/DL CALC GLOBULIN (test code = 2240) 2.4 G/DL CALC A/G RATIO (test code = 2234) 2.0 RATIO BILIRUBIN, TOTAL (test code = 2207) 0.4 MG/DL ALKALINE PHOSPHATASE (test code = 2204) 75 U/L AST (test code = 2218) 21 U/L ALT (test code = 2219) 38 U/L Nick HollidayCOMPREHENSIVE METABOLIC [id number] 00:00:00* Test Item Value Reference Range Interpretation Comme nts GLUCOSE (test code = 2217) 162 MG/DL BUN (test code = 2208) 14 MG/DL CREATININE (test code = 2214) 0.67 MG/DL eGFR (2020 CKD-EPI) (test code = 66697) 109 ML/MIN/1.73 CALC BUN/CREAT (test code = 2235) 21 RATIO SODIUM (test code = 2231) 139 MEQ/L POTASSIUM (test code = 2228) 4.7 MEQ/L CHLORIDE (test code = 2215) 103 MEQ/L CARBON DIOXIDE (test code = 2206) 22 MEQ/L CALCIUM (test code = 2209) 9.7 MG/DL PROTEIN, TOTAL (test code = 2229) 7.1 G/DL ALBUMIN (test code = 2201) 4.7 G/DL CALC GLOBULIN (test code = 2240) 2.4 G/DL CALC A/G RATIO (test code = 2234) 2.0 RATIO BILIRUBIN, TOTAL (test code = 2207) 0.4 MG/DL ALKALINE PHOSPHATASE (test code = 2204) 75 U/L AST (test code = 2218) 21 U/L ALT (test code = 2219) 38 U/L LIPID [id number] 00:00:00* Test Item Value Reference Range Interpretation Comme nts CHOLESTEROL (test code = 2210) 156 MG/DL TRIGLYCERIDES (test code = 2232) 81 MG/DL HDL CHOLESTEROL (test code = 2220) 48 MG/DL CALC LDL CHOL (test code = 2237) 91 MG/DL RISK RATIO LDL/HDL (test cod e = 2238) 1.90 RATIO HEMOGLOBIN [id number] 00:00:00* Test Item Value Reference Range Interpretation Comme nts HEMOGLOBIN A1c (test code = 88874) 7.6 % LIPID [id number] 00:00:00* Test Item Value Reference Range Interpretation Comme nts CHOLESTEROL (test code = 2210) 156 MG/DL TRIGLYCERIDES (test code = 2232) 81 MG/DL HDL CHOLESTEROL (test code = 2220) 48 MG/DL CALC LDL CHOL (test code = 2237) 91 MG/DL RISK RATIO LDL/HDL (test cod e = 2238) 1.90 RATIO Nick HollidayCOMPREHENSIVE METABOLIC [id number] 00:00:00* Test Item Value Reference Range Interpretation Comme nts GLUCOSE (test code = 2217) 118 MG/DL BUN (test code = 2208) 14 MG/DL CREATININE (test code = 2214) 0.68 MG/DL eGFR AMER. (test cod e = 23583) 123 ML/MIN/1.73 eGFR NON- AMER. (test code = 37612) 106 ML/MIN/1.73 CALC BUN/CREAT (test code = 2235) 21 RATIO SODIUM (test code = 2231) 142 MEQ/L POTASSIUM (test code = 2228) 4.6 MEQ/L CHLORIDE (test code = 2215) 104 MEQ/L CARBON DIOXIDE (test code = 2206) 27 MEQ/L CALCIUM (test code = 2209) 9.5 MG/DL PROTEIN, TOTAL (test code = 2229) 6.6 G/DL ALBUMIN (test code = 2201) 4.4 G/DL CALC GLOBULIN (test code = 2240) 2.2 G/DL CALC A/G RATIO (test code = 2234) 2.0 RATIO BILIRUBIN, TOTAL (test code = 2207) 0.3 MG/DL ALKALINE PHOSPHATASE (test code = 2204) 70 U/L AST (test code = 2218) 22 U/L ALT (test code = 2219) 37 U/L Nick HollidayHEMOGLOBIN [id number] 00:00:00* Test Item Value Reference Range Interpretation Comme nts HEMOGLOBIN A1c (test code = 24770) 7.0 % Nick F AustinLIPID [id number] 00:00:00* Test Item Value Reference Range Interpretation Comme nts CHOLESTEROL (test code = 2210) 181 MG/DL TRIGLYCERIDES (test code = 2232) 81 MG/DL HDL CHOLESTEROL (test code = 2220) 49 MG/DL CALC LDL CHOL (test code = 2237) 114 MG/DL RISK RATIO LDL/HDL (test cod e = 2238) 2.33 RATIO Nick Wade AustinLIPID [id number] 00:00:00* Test Item Value Reference Range Interpretation Comme nts CHOLESTEROL (test code = 2210) 181 MG/DL TRIGLYCERIDES (test code = 2232) 81 MG/DL HDL CHOLESTEROL (test code = 2220) 49 MG/DL CALC LDL CHOL (test code = 2237) 114 MG/DL RISK RATIO LDL/HDL (test cod e = 2238) 2.33 RATIO COMPREHENSIVE METABOLIC [id number] 00:00:00* Test Item Value Reference Range Interpretation Comme nts GLUCOSE (test code = 2217) 118 MG/DL BUN (test code = 2208) 14 MG/DL CREATININE (test code = 2214) 0.68 MG/DL eGFR AMER. (test cod e = 27469) 123 ML/MIN/1.73 eGFR NON- AMER. (test code = 69050) 106 ML/MIN/1.73 CALC BUN/CREAT (test code = 2235) 21 RATIO SODIUM (test code = 2231) 142 MEQ/L POTASSIUM (test code = 2228) 4.6 MEQ/L CHLORIDE (test code = 2215) 104 MEQ/L CARBON DIOXIDE (test code = 2206) 27 MEQ/L CALCIUM (test code = 2209) 9.5 MG/DL PROTEIN, TOTAL (test code = 2229) 6.6 G/DL ALBUMIN (test code = 2201) 4.4 G/DL CALC GLOBULIN (test code = 2240) 2.2 G/DL CALC A/G RATIO (test code = 2234) 2.0 RATIO BILIRUBIN, TOTAL (test code = 2207) 0.3 MG/DL ALKALINE PHOSPHATASE (test code = 2204) 70 U/L AST (test code = 2218) 22 U/L ALT (test code = 2219) 37 U/L COMPREHENSIVE METABOLIC [id number] 00:00:00* Test Item Value Reference Range Interpretation Comme nts GLUCOSE (test code = 2217) 118 MG/DL BUN (test code = 2208) 14 MG/DL CREATININE (test code = 2214) 0.68 MG/DL eGFR AMER. (test cod e = 90888) 123 ML/MIN/1.73 eGFR NON- AMER. (test code = 70021) 106 ML/MIN/1.73 CALC BUN/CREAT (test code = 2235) 21 RATIO SODIUM (test code = 2231) 142 MEQ/L POTASSIUM (test code = 2228) 4.6 MEQ/L CHLORIDE (test code = 2215) 104 MEQ/L CARBON DIOXIDE (test code = 2206) 27 MEQ/L CALCIUM (test code = 2209) 9.5 MG/DL PROTEIN, TOTAL (test code = 2229) 6.6 G/DL ALBUMIN (test code = 2201) 4.4 G/DL CALC GLOBULIN (test code = 2240) 2.2 G/DL CALC A/G RATIO (test code = 2234) 2.0 RATIO BILIRUBIN, TOTAL (test code = 2207) 0.3 MG/DL ALKALINE PHOSPHATASE (test code = 2204) 70 U/L AST (test code = 2218) 22 U/L ALT (test code = 2219) 37 U/L Nick Wade AustinHEMOGLOBIN [id number] 00:00:00* Test Item Value Reference Range Interpretation Comme nts HEMOGLOBIN A1c (test code = 83369) 7.0 % Nick Wade AustinHEMOGLOBIN [id number] 00:00:00* Test Item Value Reference Range Interpretation Comme nts HEMOGLOBIN A1c (test code = 43660) 7.0 % LIPID [id number] 00:00:00* Test Item Value Reference Range Interpretation Comme nts CHOLESTEROL (test code = 2210) 181 MG/DL TRIGLYCERIDES (test code = 2232) 81 MG/DL HDL CHOLESTEROL (test code = 2220) 49 MG/DL CALC LDL CHOL (test code = 2237) 114 MG/DL RISK RATIO LDL/HDL (test cod e = 2238) 2.33 RATIO LIPID [id number] 00:00:00* Test Item Value Reference Range Interpretation Comme nts CHOLESTEROL (test code = 2210) 181 MG/DL TRIGLYCERIDES (test code = 2232) 81 MG/DL HDL CHOLESTEROL (test code = 2220) 49 MG/DL CALC LDL CHOL (test code = 2237) 114 MG/DL RISK RATIO LDL/HDL (test cod e = 2238) 2.33 RATIO Ncik HollidayCOMPREHENSIVE METABOLIC [id number] 00:00:00* Test Item Value Reference Range Interpretation Comme nts GLUCOSE (test code = 2217) 118 MG/DL BUN (test code = 2208) 14 MG/DL CREATININE (test code = 2214) 0.68 MG/DL eGFR AMER. (test cod e = 46625) 123 ML/MIN/1.73 eGFR NON- AMER. (test code = 08045) 106 ML/MIN/1.73 CALC BUN/CREAT (test code = 2235) 21 RATIO SODIUM (test code = 2231) 142 MEQ/L POTASSIUM (test code = 2228) 4.6 MEQ/L CHLORIDE (test code = 2215) 104 MEQ/L CARBON DIOXIDE (test code = 2206) 27 MEQ/L CALCIUM (test code = 2209) 9.5 MG/DL PROTEIN, TOTAL (test code = 2229) 6.6 G/DL ALBUMIN (test code = 2201) 4.4 G/DL CALC GLOBULIN (test code = 2240) 2.2 G/DL CALC A/G RATIO (test code = 2234) 2.0 RATIO BILIRUBIN, TOTAL (test code = 2207) 0.3 MG/DL ALKALINE PHOSPHATASE (test code = 2204) 70 U/L AST (test code = 2218) 22 U/L ALT (test code = 2219) 37 U/L COMPREHENSIVE METABOLIC [id number] 00:00:00* Test Item Value Reference Range Interpretation Comme nts GLUCOSE (test code = 2217) 118 MG/DL BUN (test code = 2208) 14 MG/DL CREATININE (test code = 2214) 0.68 MG/DL eGFR AMER. (test cod e = 37337) 123 ML/MIN/1.73 eGFR NON- AMER. (test code = 41538) 106 ML/MIN/1.73 CALC BUN/CREAT (test code = 2235) 21 RATIO SODIUM (test code = 2231) 142 MEQ/L POTASSIUM (test code = 2228) 4.6 MEQ/L CHLORIDE (test code = 2215) 104 MEQ/L CARBON DIOXIDE (test code = 2206) 27 MEQ/L CALCIUM (test code = 2209) 9.5 MG/DL PROTEIN, TOTAL (test code = 2229) 6.6 G/DL ALBUMIN (test code = 2201) 4.4 G/DL CALC GLOBULIN (test code = 2240) 2.2 G/DL CALC A/G RATIO (test code = 2234) 2.0 RATIO BILIRUBIN, TOTAL (test code = 2207) 0.3 MG/DL ALKALINE PHOSPHATASE (test code = 2204) 70 U/L AST (test code = 2218) 22 U/L ALT (test code = 2219) 37 U/L Nick Wade AustinHEMOGLOBIN [id number] 00:00:00* Test Item Value Reference Range Interpretation Comme nts HEMOGLOBIN A1c (test code = 39391) 7.0 % Nick Wade AustinHEMOGLOBIN [id number] 00:00:00* Test Item Value Reference Range Interpretation Comme nts HEMOGLOBIN A1c (test code = 58690) 7.0 % LIPID [id number] 00:00:00* Test Item Value Reference Range Interpretation Comme nts CHOLESTEROL (test code = 2210) 181 MG/DL TRIGLYCERIDES (test code = 2232) 81 MG/DL HDL CHOLESTEROL (test code = 2220) 49 MG/DL CALC LDL CHOL (test code = 2237) 114 MG/DL RISK RATIO LDL/HDL (test cod e = 2238) 2.33 RATIO COMPREHENSIVE METABOLIC [id number] 00:00:00* Test Item Value Reference Range Interpretation Comme nts GLUCOSE (test code = 2217) 118 MG/DL BUN (test code = 2208) 14 MG/DL CREATININE (test code = 2214) 0.68 MG/DL eGFR AMER. (test cod e = 36391) 123 ML/MIN/1.73 eGFR NON- AMER. (test code = 35744) 106 ML/MIN/1.73 CALC BUN/CREAT (test code = 2235) 21 RATIO SODIUM (test code = 2231) 142 MEQ/L POTASSIUM (test code = 2228) 4.6 MEQ/L CHLORIDE (test code = 2215) 104 MEQ/L CARBON DIOXIDE (test code = 6) 27 MEQ/L CALCIUM (test code = 2209) 9.5 MG/DL PROTEIN, TOTAL (test code = 2229) 6.6 G/DL ALBUMIN (test code = 2201) 4.4 G/DL CALC GLOBULIN (test code = 2240) 2.2 G/DL CALC A/G RATIO (test code = 2234) 2.0 RATIO BILIRUBIN, TOTAL (test code = 2207) 0.3 MG/DL ALKALINE PHOSPHATASE (test code = 2204) 70 U/L AST (test code = 2218) 22 U/L ALT (test code = 2219) 37 U/L HEMOGLOBIN [id number] 00:00:00* Test Item Value Reference Range Interpretation Comme nts HEMOGLOBIN A1c (test code = 67390) 7.0 % LIPID [id number] 00:00:00* Test Item Value Reference Range Interpretation Comme nts CHOLESTEROL (test code = 2210) 181 MG/DL TRIGLYCERIDES (test code = 2232) 81 MG/DL HDL CHOLESTEROL (test code = 2220) 49 MG/DL CALC LDL CHOL (test code = 2237) 114 MG/DL RISK RATIO LDL/HDL (test cod e = 2238) 2.33 RATIO Nick HollidayHEMOGLOBIN [id number] 00:00:00* Test Item Value Reference Range Interpretation Comme nts HEMOGLOBIN A1c (test code = 73150) 7.8 % Nick Wade AustinLIPID [id number] 00:00:00* Test Item Value Reference Range Interpretation Comme nts CHOLESTEROL (test code = 2210) 129 MG/DL TRIGLYCERIDES (test code = 2232) 83 MG/DL HDL CHOLESTEROL (test code = 2220) 47 MG/DL CALC LDL CHOL (test code = 2237) 65 MG/DL RISK RATIO LDL/HDL (test cod e = 2238) 1.38 RATIO Nick Wade AustinLIPID [id number] 00:00:00* Test Item Value Reference Range Interpretation Comme nts CHOLESTEROL (test code = 2210) 129 MG/DL TRIGLYCERIDES (test code = 2232) 83 MG/DL HDL CHOLESTEROL (test code = 2220) 47 MG/DL CALC LDL CHOL (test code = 2237) 65 MG/DL RISK RATIO LDL/HDL (test cod e = 2238) 1.38 RATIO COMPREHENSIVE METABOLIC [id number] 00:00:00* Test Item Value Reference Range Interpretation Comme nts GLUCOSE (test code = 2217) 185 MG/DL BUN (test code = 2208) 18 MG/DL CREATININE (test code = 2214) 0.67 MG/DL eGFR AMER. (test cod e = 31540) 124 ML/MIN/1.73 eGFR NON- AMER. (test code = 31376) 107 ML/MIN/1.73 CALC BUN/CREAT (test code = 2235) 27 RATIO SODIUM (test code = 2231) 138 MEQ/L POTASSIUM (test code = 2228) 4.3 MEQ/L CHLORIDE (test code = 2215) 103 MEQ/L CARBON DIOXIDE (test code = 2206) 25 MEQ/L CALCIUM (test code = 2209) 9.4 MG/DL PROTEIN, TOTAL (test code = 2229) 6.7 G/DL ALBUMIN (test code = 2201) 4.3 G/DL CALC GLOBULIN (test code = 2240) 2.4 G/DL CALC A/G RATIO (test code = 2234) 1.8 RATIO BILIRUBIN, TOTAL (test code = 2207) 0.4 MG/DL ALKALINE PHOSPHATASE (test code = 2204) 76 U/L AST (test code = 2218) 17 U/L ALT (test code = 2219) 25 U/L Nick Wade WilmingtonCOMPREHENSIVE METABOLIC [id number] 00:00:00* Test Item Value Reference Range Interpretation Comme nts GLUCOSE (test code = 2217) 185 MG/DL BUN (test code = 2208) 18 MG/DL CREATININE (test code = 2214) 0.67 MG/DL eGFR AMER. (test cod e = 81879) 124 ML/MIN/1.73 eGFR NON- AMER. (test code = 21206) 107 ML/MIN/1.73 CALC BUN/CREAT (test code = 2235) 27 RATIO SODIUM (test code = 2231) 138 MEQ/L POTASSIUM (test code = 2228) 4.3 MEQ/L CHLORIDE (test code = 2215) 103 MEQ/L CARBON DIOXIDE (test code = 2206) 25 MEQ/L CALCIUM (test code = 2209) 9.4 MG/DL PROTEIN, TOTAL (test code = 2229) 6.7 G/DL ALBUMIN (test code = 2201) 4.3 G/DL CALC GLOBULIN (test code = 2240) 2.4 G/DL CALC A/G RATIO (test code = 2234) 1.8 RATIO BILIRUBIN, TOTAL (test code = 2207) 0.4 MG/DL ALKALINE PHOSPHATASE (test code = 2204) 76 U/L AST (test code = 2218) 17 U/L ALT (test code = 2219) 25 U/L HEMOGLOBIN [id number] 00:00:00* Test Item Value Reference Range Interpretation Comme nts HEMOGLOBIN A1c (test code = 44187) 7.8 % HEMOGLOBIN [id number] 00:00:00* Test Item Value Reference Range Interpretation Comme nts HEMOGLOBIN A1c (test code = 50224) 7.8 % Nick Wade MgLIPID [id number] 00:00:00* Test Item Value Reference Range Interpretation Comme nts CHOLESTEROL (test code = 2210) 129 MG/DL TRIGLYCERIDES (test code = 2232) 83 MG/DL HDL CHOLESTEROL (test code = 2220) 47 MG/DL CALC LDL CHOL (test code = 2237) 65 MG/DL RISK RATIO LDL/HDL (test cod e = 2238) 1.38 RATIO LIPID [id number] 00:00:00* Test Item Value Reference Range Interpretation Comme nts CHOLESTEROL (test code = 2210) 129 MG/DL TRIGLYCERIDES (test code = 2232) 83 MG/DL HDL CHOLESTEROL (test code = 2220) 47 MG/DL CALC LDL CHOL (test code = 2237) 65 MG/DL RISK RATIO LDL/HDL (test cod e = 2238) 1.38 RATIO Nick Wade MgCOMPREHENSIVE METABOLIC [id number] 00:00:00* Test Item Value Reference Range Interpretation Comme nts GLUCOSE (test code = 2217) 185 MG/DL BUN (test code = 2208) 18 MG/DL CREATININE (test code = 2214) 0.67 MG/DL eGFR AMER. (test cod e = 60353) 124 ML/MIN/1.73 eGFR NON- AMER. (test code = 02418) 107 ML/MIN/1.73 CALC BUN/CREAT (test code = 2235) 27 RATIO SODIUM (test code = 2231) 138 MEQ/L POTASSIUM (test code = 2228) 4.3 MEQ/L CHLORIDE (test code = 2215) 103 MEQ/L CARBON DIOXIDE (test code = 2206) 25 MEQ/L CALCIUM (test code = 2209) 9.4 MG/DL PROTEIN, TOTAL (test code = 2229) 6.7 G/DL ALBUMIN (test code = 2201) 4.3 G/DL CALC GLOBULIN (test code = 2240) 2.4 G/DL CALC A/G RATIO (test code = 2234) 1.8 RATIO BILIRUBIN, TOTAL (test code = 2207) 0.4 MG/DL ALKALINE PHOSPHATASE (test code = 2204) 76 U/L AST (test code = 2218) 17 U/L ALT (test code = 2219) 25 U/L COMPREHENSIVE METABOLIC [id number] 00:00:00* Test Item Value Reference Range Interpretation Comme nts GLUCOSE (test code = 2217) 185 MG/DL BUN (test code = 2208) 18 MG/DL CREATININE (test code = 2214) 0.67 MG/DL eGFR AMER. (test cod e = 99006) 124 ML/MIN/1.73 eGFR NON- AMER. (test code = 98656) 107 ML/MIN/1.73 CALC BUN/CREAT (test code = 2235) 27 RATIO SODIUM (test code = 2231) 138 MEQ/L POTASSIUM (test code = 2228) 4.3 MEQ/L CHLORIDE (test code = 2215) 103 MEQ/L CARBON DIOXIDE (test code = 2206) 25 MEQ/L CALCIUM (test code = 2209) 9.4 MG/DL PROTEIN, TOTAL (test code = 2229) 6.7 G/DL ALBUMIN (test code = 2201) 4.3 G/DL CALC GLOBULIN (test code = 2240) 2.4 G/DL CALC A/G RATIO (test code = 2234) 1.8 RATIO BILIRUBIN, TOTAL (test code = 2207) 0.4 MG/DL ALKALINE PHOSPHATASE (test code = 2204) 76 U/L AST (test code = 2218) 17 U/L ALT (test code = 2219) 25 U/L Nick Wade AustinHEMOGLOBIN [id number] 00:00:00* Test Item Value Reference Range Interpretation Comme nts HEMOGLOBIN A1c (test code = 95775) 7.8 % HEMOGLOBIN [id number] 00:00:00* Test Item Value Reference Range Interpretation Comme nts HEMOGLOBIN A1c (test code = 97742) 7.8 % Nick Wade AustinLIPID [id number] 00:00:00* Test Item Value Reference Range Interpretation Comme nts CHOLESTEROL (test code = 2210) 129 MG/DL TRIGLYCERIDES (test code = 2232) 83 MG/DL HDL CHOLESTEROL (test code = 2220) 47 MG/DL CALC LDL CHOL (test code = 2237) 65 MG/DL RISK RATIO LDL/HDL (test cod e = 2238) 1.38 RATIO COMPREHENSIVE METABOLIC [id number] 00:00:00* Test Item Value Reference Range Interpretation Comme nts GLUCOSE (test code = 2217) 185 MG/DL BUN (test code = 2208) 18 MG/DL CREATININE (test code = 2214) 0.67 MG/DL eGFR AMER. (test cod e = 36319) 124 ML/MIN/1.73 eGFR NON- AMER. (test code = 99840) 107 ML/MIN/1.73 CALC BUN/CREAT (test code = 2235) 27 RATIO SODIUM (test code = 2231) 138 MEQ/L POTASSIUM (test code = 2228) 4.3 MEQ/L CHLORIDE (test code = 2215) 103 MEQ/L CARBON DIOXIDE (test code = 2206) 25 MEQ/L CALCIUM (test code = 2209) 9.4 MG/DL PROTEIN, TOTAL (test code = 2229) 6.7 G/DL ALBUMIN (test code = 2201) 4.3 G/DL CALC GLOBULIN (test code = 2240) 2.4 G/DL CALC A/G RATIO (test code = 2234) 1.8 RATIO BILIRUBIN, TOTAL (test code = 2207) 0.4 MG/DL ALKALINE PHOSPHATASE (test code = 2204) 76 U/L AST (test code = 2218) 17 U/L ALT (test code = 2219) 25 U/L HEMOGLOBIN [id number] 00:00:00* Test Item Value Reference Range Interpretation Comme nts HEMOGLOBIN A1c (test code = 19882) 7.8 % LIPID [id number] 00:00:00* Test Item Value Reference Range Interpretation Comme nts CHOLESTEROL (test code = 2210) 129 MG/DL TRIGLYCERIDES (test code = 2232) 83 MG/DL HDL CHOLESTEROL (test code = 2220) 47 MG/DL CALC LDL CHOL (test code = 2237) 65 MG/DL RISK RATIO LDL/HDL (test cod e = 2238) 1.38 RATIO Nick HollidayCOMPREHENSIVE METABOLIC [id number] 00:00:00* Test Item Value Reference Range Interpretation Comme nts GLUCOSE (test code = 2217) 185 MG/DL BUN (test code = 2208) 18 MG/DL CREATININE (test code = 2214) 0.67 MG/DL eGFR AMER. (test cod e = 91594) 124 ML/MIN/1.73 eGFR NON- AMER. (test code = 82960) 107 ML/MIN/1.73 CALC BUN/CREAT (test code = 2235) 27 RATIO SODIUM (test code = 2231) 138 MEQ/L POTASSIUM (test code = 2228) 4.3 MEQ/L CHLORIDE (test code = 2215) 103 MEQ/L CARBON DIOXIDE (test code = 2206) 25 MEQ/L CALCIUM (test code = 2209) 9.4 MG/DL PROTEIN, TOTAL (test code = 2229) 6.7 G/DL ALBUMIN (test code = 2201) 4.3 G/DL CALC GLOBULIN (test code = 2240) 2.4 G/DL CALC A/G RATIO (test code = 2234) 1.8 RATIO BILIRUBIN, TOTAL (test code = 2207) 0.4 MG/DL ALKALINE PHOSPHATASE (test code = 2204) 76 U/L AST (test code = 2218) 17 U/L ALT (test code = 2219) 25 U/L Nick HollidayHEMOGLOBIN [id number] 00:00:00* Test Item Value Reference Range Interpretation Comme nts HEMOGLOBIN A1c (test code = 86903) 7.4 % Nick Wade AustinHEMOGLOBIN [id number] 00:00:00* Test Item Value Reference Range Interpretation Comme nts HEMOGLOBIN A1c (test code = 41878) 7.4 % HEMOGLOBIN [id number] 00:00:00* Test Item Value Reference Range Interpretation Comme nts HEMOGLOBIN A1c (test code = 04566) 7.4 % Nick Wade AustinHEMOGLOBIN [id number] 00:00:00* Test Item Value Reference Range Interpretation Comme nts HEMOGLOBIN A1c (test code = 53761) 7.4 % HEMOGLOBIN [id number] 00:00:00* Test Item Value Reference Range Interpretation Comme breezy HEMOGLOBIN A1c (test code = 95435) 7.4 % Nick HollidayHEMOGLOBIN [id number] 00:00:00* Test Item Value Reference Range Interpretation Comme nts HEMOGLOBIN A1c (test code = 95045) 7.4 % COMPREHENSIVE METABOLIC [id number] 00:00:00* Test Item Value Reference Range Interpretation Comme nts GLUCOSE (test code = 2217) 180 MG/DL BUN (test code = 2208) 17 MG/DL CREATININE (test code = 2214) 0.65 MG/DL eGFR AMER. (test cod e = 73998) 126 ML/MIN/1.73 eGFR NON- AMER. (test code = 12066) 109 ML/MIN/1.73 CALC BUN/CREAT (test code = 2235) 26 RATIO SODIUM (test code = 2231) 138 MEQ/L POTASSIUM (test code = 2228) 4.7 MEQ/L CHLORIDE (test code = 2215) 101 MEQ/L CARBON DIOXIDE (test code = 2206) 26 MEQ/L CALCIUM (test code = 2209) 9.7 MG/DL PROTEIN, TOTAL (test code = 2229) 7.0 G/DL ALBUMIN (test code = 2201) 4.7 G/DL CALC GLOBULIN (test code = 2240) 2.3 G/DL CALC A/G RATIO (test code = 2234) 2.0 RATIO BILIRUBIN, TOTAL (test code = 2207) 0.3 MG/DL ALKALINE PHOSPHATASE (test code = 2204) 71 U/L AST (test code = 2218) 20 U/L ALT (test code = 2219) 39 U/L Nick Wade AustinLIPID [id number] 00:00:00* Test Item Value Reference Range Interpretation Comme nts CHOLESTEROL (test code = 2210) 140 MG/DL TRIGLYCERIDES (test code = 2232) 84 MG/DL HDL CHOLESTEROL (test code = 2220) 50 MG/DL CALC LDL CHOL (test code = 2237) 74 MG/DL RISK RATIO LDL/HDL (test cod e = 2238) 1.48 RATIO Nick HollidayCOMPREHENSIVE METABOLIC [id number] 00:00:00* Test Item Value Reference Range Interpretation Comme nts GLUCOSE (test code = 2217) 180 MG/DL BUN (test code = 2208) 17 MG/DL CREATININE (test code = 2214) 0.65 MG/DL eGFR AMER. (test cod e = 74491) 126 ML/MIN/1.73 eGFR NON- AMER. (test code = 61337) 109 ML/MIN/1.73 CALC BUN/CREAT (test code = 2235) 26 RATIO SODIUM (test code = 2231) 138 MEQ/L POTASSIUM (test code = 2228) 4.7 MEQ/L CHLORIDE (test code = 2215) 101 MEQ/L CARBON DIOXIDE (test code = 2206) 26 MEQ/L CALCIUM (test code = 2209) 9.7 MG/DL PROTEIN, TOTAL (test code = 2229) 7.0 G/DL ALBUMIN (test code = 2201) 4.7 G/DL CALC GLOBULIN (test code = 2240) 2.3 G/DL CALC A/G RATIO (test code = 2234) 2.0 RATIO BILIRUBIN, TOTAL (test code = 2207) 0.3 MG/DL ALKALINE PHOSPHATASE (test code = 2204) 71 U/L AST (test code = 2218) 20 U/L ALT (test code = 2219) 39 U/L Nick F MgCOMPREHENSIVE METABOLIC [id number] 00:00:00* Test Item Value Reference Range Interpretation Comme nts GLUCOSE (test code = 2217) 180 MG/DL BUN (test code = 2208) 17 MG/DL CREATININE (test code = 2214) 0.65 MG/DL eGFR AMER. (test cod e = 58500) 126 ML/MIN/1.73 eGFR NON- AMER. (test code = 29980) 109 ML/MIN/1.73 CALC BUN/CREAT (test code = 2235) 26 RATIO SODIUM (test code = 2231) 138 MEQ/L POTASSIUM (test code = 2228) 4.7 MEQ/L CHLORIDE (test code = 2215) 101 MEQ/L CARBON DIOXIDE (test code = 2206) 26 MEQ/L CALCIUM (test code = 2209) 9.7 MG/DL PROTEIN, TOTAL (test code = 2229) 7.0 G/DL ALBUMIN (test code = 2201) 4.7 G/DL CALC GLOBULIN (test code = 2240) 2.3 G/DL CALC A/G RATIO (test code = 2234) 2.0 RATIO BILIRUBIN, TOTAL (test code = 2207) 0.3 MG/DL ALKALINE PHOSPHATASE (test code = 2204) 71 U/L AST (test code = 2218) 20 U/L ALT (test code = 2219) 39 U/L LIPID [id number] 00:00:00* Test Item Value Reference Range Interpretation Comme nts CHOLESTEROL (test code = 2210) 140 MG/DL TRIGLYCERIDES (test code = 2232) 84 MG/DL HDL CHOLESTEROL (test code = 2220) 50 MG/DL CALC LDL CHOL (test code = 2237) 74 MG/DL RISK RATIO LDL/HDL (test cod e = 2238) 1.48 RATIO Nick F AustinLIPID [id number] 00:00:00* Test Item Value Reference Range Interpretation Comme nts CHOLESTEROL (test code = 2210) 140 MG/DL TRIGLYCERIDES (test code = 2232) 84 MG/DL HDL CHOLESTEROL (test code = 2220) 50 MG/DL CALC LDL CHOL (test code = 2237) 74 MG/DL RISK RATIO LDL/HDL (test cod e = 2238) 1.48 RATIO COMPREHENSIVE METABOLIC [id number] 00:00:00* Test Item Value Reference Range Interpretation Comme nts GLUCOSE (test code = 2217) 180 MG/DL BUN (test code = 2208) 17 MG/DL CREATININE (test code = 2214) 0.65 MG/DL eGFR AMER. (test cod e = 63991) 126 ML/MIN/1.73 eGFR NON- AMER. (test code = 82924) 109 ML/MIN/1.73 CALC BUN/CREAT (test code = 2235) 26 RATIO SODIUM (test code = 2231) 138 MEQ/L POTASSIUM (test code = 2228) 4.7 MEQ/L CHLORIDE (test code = 2215) 101 MEQ/L CARBON DIOXIDE (test code = 2206) 26 MEQ/L CALCIUM (test code = 2209) 9.7 MG/DL PROTEIN, TOTAL (test code = 2229) 7.0 G/DL ALBUMIN (test code = 2201) 4.7 G/DL CALC GLOBULIN (test code = 2240) 2.3 G/DL CALC A/G RATIO (test code = 2234) 2.0 RATIO BILIRUBIN, TOTAL (test code = 2207) 0.3 MG/DL ALKALINE PHOSPHATASE (test code = 2204) 71 U/L AST (test code = 2218) 20 U/L ALT (test code = 2219) 39 U/L COMPREHENSIVE METABOLIC [id number] 00:00:00* Test Item Value Reference Range Interpretation Comme nts GLUCOSE (test code = 2217) 180 MG/DL BUN (test code = 2208) 17 MG/DL CREATININE (test code = 2214) 0.65 MG/DL eGFR AMER. (test cod e = 85244) 126 ML/MIN/1.73 eGFR NON- AMER. (test code = 20219) 109 ML/MIN/1.73 CALC BUN/CREAT (test code = 2235) 26 RATIO SODIUM (test code = 2231) 138 MEQ/L POTASSIUM (test code = 2228) 4.7 MEQ/L CHLORIDE (test code = 2215) 101 MEQ/L CARBON DIOXIDE (test code = 2206) 26 MEQ/L CALCIUM (test code = 2209) 9.7 MG/DL PROTEIN, TOTAL (test code = 2229) 7.0 G/DL ALBUMIN (test code = 2201) 4.7 G/DL CALC GLOBULIN (test code = 2240) 2.3 G/DL CALC A/G RATIO (test code = 2234) 2.0 RATIO BILIRUBIN, TOTAL (test code = 2207) 0.3 MG/DL ALKALINE PHOSPHATASE (test code = 2204) 71 U/L AST (test code = 2218) 20 U/L ALT (test code = 2219) 39 U/L Nick F AustinLIPID [id number] 00:00:00* Test Item Value Reference Range Interpretation Comme nts CHOLESTEROL (test code = 2210) 140 MG/DL TRIGLYCERIDES (test code = 2232) 84 MG/DL HDL CHOLESTEROL (test code = 2220) 50 MG/DL CALC LDL CHOL (test code = 2237) 74 MG/DL RISK RATIO LDL/HDL (test cod e = 2238) 1.48 RATIO COMPREHENSIVE METABOLIC [id number] 00:00:00* Test Item Value Reference Range Interpretation Comme nts GLUCOSE (test code = 2217) 180 MG/DL BUN (test code = 2208) 17 MG/DL CREATININE (test code = 2214) 0.65 MG/DL eGFR AMER. (test cod e = 81086) 126 ML/MIN/1.73 eGFR NON- AMER. (test code = 54446) 109 ML/MIN/1.73 CALC BUN/CREAT (test code = 2235) 26 RATIO SODIUM (test code = 2231) 138 MEQ/L POTASSIUM (test code = 2228) 4.7 MEQ/L CHLORIDE (test code = 2215) 101 MEQ/L CARBON DIOXIDE (test code = 2206) 26 MEQ/L CALCIUM (test code = 2209) 9.7 MG/DL PROTEIN, TOTAL (test code = 222) 7.0 G/DL ALBUMIN (test code = 220) 4.7 G/DL CALC GLOBULIN (test code = 2240) 2.3 G/DL CALC A/G RATIO (test code = 2234) 2.0 RATIO BILIRUBIN, TOTAL (test code = 2206) 0.3 MG/DL ALKALINE PHOSPHATASE (test code = 2204) 71 U/L AST (test code = 2218) 20 U/L ALT (test code = 2219) 39 U/L LIPID [id number] 00:00:00* Test Item Value Reference Range Interpretation Comme nts CHOLESTEROL (test code = 2210) 140 MG/DL TRIGLYCERIDES (test code = 2232) 84 MG/DL HDL CHOLESTEROL (test code = 2220) 50 MG/DL CALC LDL CHOL (test code = 2237) 74 MG/DL RISK RATIO LDL/HDL (test cod e = 2238) 1.48 RATIO LIPID [id number] 00:00:00* Test Item Value Reference Range Interpretation Comme nts CHOLESTEROL (test code = 2210) 140 MG/DL TRIGLYCERIDES (test code = 2232) 84 MG/DL HDL CHOLESTEROL (test code = 2220) 50 MG/DL CALC LDL CHOL (test code = 2237) 74 MG/DL RISK RATIO LDL/HDL (test cod e = 2238) 1.48 RATIO Nick Wade AustinHEMOGLOBIN [id number] 00:00:00* Test Item Value Reference Range Interpretation Comme nts HEMOGLOBIN A1c (test code = 77232) 7.4 % Nick Wade AustinHEMOGLOBIN [id number] 00:00:00* Test Item Value Reference Range Interpretation Comme nts HEMOGLOBIN A1c (test code = 62969) 7.4 % HEMOGLOBIN [id number] 00:00:00* Test Item Value Reference Range Interpretation Comme nts HEMOGLOBIN A1c (test code = 37278) 7.4 % Nick HollidayHEMOGLOBIN [id number] 00:00:00* Test Item Value Reference Range Interpretation Comme breezy HEMOGLOBIN A1c (test code = 81774) 7.4 % Nick Wade AustinHEMOGLOBIN [id number] 00:00:00* Test Item Value Reference Range Interpretation Comme nts HEMOGLOBIN A1c (test code = 92624) 7.4 % HEMOGLOBIN [id number] 00:00:00* Test Item Value Reference Range Interpretation Comme nts HEMOGLOBIN A1c (test code = 02600) 7.4 % HEMOGLOBIN [id number] 00:00:00* Test Item Value Reference Range Interpretation Comme breezy HEMOGLOBIN A1c (test code = 64156) 9.1 % Nick Wade AustinLIPID [id number] 00:00:00* Test Item Value Reference Range Interpretation Comme nts CHOLESTEROL (test code = 2210) 206 MG/DL TRIGLYCERIDES (test code = 2232) 102 MG/DL HDL CHOLESTEROL (test code = 2220) 47 MG/DL CALC LDL CHOL (test code = 2237) 139 MG/DL RISK RATIO LDL/HDL (test cod e = 2238) 2.95 RATIO Nick HollidayCOMPREHENSIVE METABOLIC [id number] 00:00:00* Test Item Value Reference Range Interpretation Comme nts GLUCOSE (test code = 2217) 176 MG/DL BUN (test code = 2208) 15 MG/DL CREATININE (test code = 2214) 0.70 MG/DL eGFR AMER. (test cod e = 95916) 123 ML/MIN/1.73 eGFR NON- AMER. (test code = 54531) 106 ML/MIN/1.73 CALC BUN/CREAT (test code = 2235) 21 RATIO SODIUM (test code = 2231) 138 MEQ/L POTASSIUM (test code = 2228) 4.6 MEQ/L CHLORIDE (test code = 2215) 102 MEQ/L CARBON DIOXIDE (test code = 2206) 26 MEQ/L CALCIUM (test code = 2209) 9.6 MG/DL PROTEIN, TOTAL (test code = 2229) 7.0 G/DL ALBUMIN (test code = 2201) 4.5 G/DL CALC GLOBULIN (test code = 2240) 2.5 G/DL CALC A/G RATIO (test code = 2234) 1.8 RATIO BILIRUBIN, TOTAL (test code = 2207) 0.4 MG/DL ALKALINE PHOSPHATASE (test code = 2204) 78 U/L AST (test code = 2218) 19 U/L ALT (test code = 2219) 36 U/L Nick Wade AustinLIPID [id number] 00:00:00* Test Item Value Reference Range Interpretation Comme nts CHOLESTEROL (test code = 2210) 206 MG/DL TRIGLYCERIDES (test code = 2232) 102 MG/DL HDL CHOLESTEROL (test code = 2220) 47 MG/DL CALC LDL CHOL (test code = 2237) 139 MG/DL RISK RATIO LDL/HDL (test cod e = 2238) 2.95 RATIO COMPREHENSIVE METABOLIC [id number] 00:00:00* Test Item Value Reference Range Interpretation Comme nts GLUCOSE (test code = 2217) 176 MG/DL BUN (test code = 2208) 15 MG/DL CREATININE (test code = 2214) 0.70 MG/DL eGFR AMER. (test cod e = 25018) 123 ML/MIN/1.73 eGFR NON- AMER. (test code = 52636) 106 ML/MIN/1.73 CALC BUN/CREAT (test code = 2235) 21 RATIO SODIUM (test code = 2231) 138 MEQ/L POTASSIUM (test code = 2228) 4.6 MEQ/L CHLORIDE (test code = 2215) 102 MEQ/L CARBON DIOXIDE (test code = 2206) 26 MEQ/L CALCIUM (test code = 2209) 9.6 MG/DL PROTEIN, TOTAL (test code = 2229) 7.0 G/DL ALBUMIN (test code = 2201) 4.5 G/DL CALC GLOBULIN (test code = 2240) 2.5 G/DL CALC A/G RATIO (test code = 2234) 1.8 RATIO BILIRUBIN, TOTAL (test code = 2207) 0.4 MG/DL ALKALINE PHOSPHATASE (test code = 2204) 78 U/L AST (test code = 2218) 19 U/L ALT (test code = 2219) 36 U/L HEMOGLOBIN [id number] 00:00:00* Test Item Value Reference Range Interpretation Comme nts HEMOGLOBIN A1c (test code = 88016) 9.1 % HEMOGLOBIN [id number] 00:00:00* Test Item Value Reference Range Interpretation Comme nts HEMOGLOBIN A1c (test code = 20769) 9.1 % Nick Wade AustinLIPID [id number] 00:00:00* Test Item Value Reference Range Interpretation Comme nts CHOLESTEROL (test code = 2210) 206 MG/DL TRIGLYCERIDES (test code = 2232) 102 MG/DL HDL CHOLESTEROL (test code = 2220) 47 MG/DL CALC LDL CHOL (test code = 2237) 139 MG/DL RISK RATIO LDL/HDL (test cod e = 2238) 2.95 RATIO Nick Wade AustinLIPID [id number] 00:00:00* Test Item Value Reference Range Interpretation Comme nts CHOLESTEROL (test code = 2210) 206 MG/DL TRIGLYCERIDES (test code = 2232) 102 MG/DL HDL CHOLESTEROL (test code = 2220) 47 MG/DL CALC LDL CHOL (test code = 2237) 139 MG/DL RISK RATIO LDL/HDL (test cod e = 2238) 2.95 RATIO COMPREHENSIVE METABOLIC [id number] 00:00:00* Test Item Value Reference Range Interpretation Comme nts GLUCOSE (test code = 2217) 176 MG/DL BUN (test code = 2208) 15 MG/DL CREATININE (test code = 2214) 0.70 MG/DL eGFR AMER. (test cod e = 92903) 123 ML/MIN/1.73 eGFR NON- AMER. (test code = 16536) 106 ML/MIN/1.73 CALC BUN/CREAT (test code = 2235) 21 RATIO SODIUM (test code = 2231) 138 MEQ/L POTASSIUM (test code = 2228) 4.6 MEQ/L CHLORIDE (test code = 2215) 102 MEQ/L CARBON DIOXIDE (test code = 2206) 26 MEQ/L CALCIUM (test code = 2209) 9.6 MG/DL PROTEIN, TOTAL (test code = 2229) 7.0 G/DL ALBUMIN (test code = 2201) 4.5 G/DL CALC GLOBULIN (test code = 2240) 2.5 G/DL CALC A/G RATIO (test code = 2234) 1.8 RATIO BILIRUBIN, TOTAL (test code = 2207) 0.4 MG/DL ALKALINE PHOSPHATASE (test code = 2204) 78 U/L AST (test code = 2218) 19 U/L ALT (test code = 2219) 36 U/L COMPREHENSIVE METABOLIC [id number] 00:00:00* Test Item Value Reference Range Interpretation Comme nts GLUCOSE (test code = 2217) 176 MG/DL BUN (test code = 2208) 15 MG/DL CREATININE (test code = 2214) 0.70 MG/DL eGFR AMER. (test cod e = 34930) 123 ML/MIN/1.73 eGFR NON- AMER. (test code = 09523) 106 ML/MIN/1.73 CALC BUN/CREAT (test code = 2235) 21 RATIO SODIUM (test code = 2231) 138 MEQ/L POTASSIUM (test code = 2228) 4.6 MEQ/L CHLORIDE (test code = 2215) 102 MEQ/L CARBON DIOXIDE (test code = 2206) 26 MEQ/L CALCIUM (test code = 2209) 9.6 MG/DL PROTEIN, TOTAL (test code = 2229) 7.0 G/DL ALBUMIN (test code = 2201) 4.5 G/DL CALC GLOBULIN (test code = 2240) 2.5 G/DL CALC A/G RATIO (test code = 2234) 1.8 RATIO BILIRUBIN, TOTAL (test code = 2207) 0.4 MG/DL ALKALINE PHOSPHATASE (test code = 2204) 78 U/L AST (test code = 2218) 19 U/L ALT (test code = 2219) 36 U/L Nick HollidayHEMOGLOBIN [id number] 00:00:00* Test Item Value Reference Range Interpretation Comme nts HEMOGLOBIN A1c (test code = 97124) 9.1 % HEMOGLOBIN [id number] 00:00:00* Test Item Value Reference Range Interpretation Comme nts HEMOGLOBIN A1c (test code = 19577) 9.1 % Nick HollidayLIPID [id number] 00:00:00* Test Item Value Reference Range Interpretation Comme nts CHOLESTEROL (test code = 2210) 206 MG/DL TRIGLYCERIDES (test code = 2232) 102 MG/DL HDL CHOLESTEROL (test code = 2220) 47 MG/DL CALC LDL CHOL (test code = 2237) 139 MG/DL RISK RATIO LDL/HDL (test cod e = 2238) 2.95 RATIO Nick Wade AustinLIPID [id number] 00:00:00* Test Item Value Reference Range Interpretation Comme nts CHOLESTEROL (test code = 2210) 206 MG/DL TRIGLYCERIDES (test code = 2232) 102 MG/DL HDL CHOLESTEROL (test code = 2220) 47 MG/DL CALC LDL CHOL (test code = 2237) 139 MG/DL RISK RATIO LDL/HDL (test cod e = 2238) 2.95 RATIO COMPREHENSIVE METABOLIC [id number] 00:00:00* Test Item Value Reference Range Interpretation Comme nts GLUCOSE (test code = 2217) 176 MG/DL BUN (test code = 2208) 15 MG/DL CREATININE (test code = 2214) 0.70 MG/DL eGFR AMER. (test cod e = 11711) 123 ML/MIN/1.73 eGFR NON- AMER. (test code = 56802) 106 ML/MIN/1.73 CALC BUN/CREAT (test code = 2235) 21 RATIO SODIUM (test code = 2231) 138 MEQ/L POTASSIUM (test code = 2228) 4.6 MEQ/L CHLORIDE (test code = 2215) 102 MEQ/L CARBON DIOXIDE (test code = 2206) 26 MEQ/L CALCIUM (test code = 2209) 9.6 MG/DL PROTEIN, TOTAL (test code = 2229) 7.0 G/DL ALBUMIN (test code = 2201) 4.5 G/DL CALC GLOBULIN (test code = 2240) 2.5 G/DL CALC A/G RATIO (test code = 2234) 1.8 RATIO BILIRUBIN, TOTAL (test code = 2207) 0.4 MG/DL ALKALINE PHOSPHATASE (test code = 2204) 78 U/L AST (test code = 2218) 19 U/L ALT (test code = 2219) 36 U/L HEMOGLOBIN [id number] 00:00:00* Test Item Value Reference Range Interpretation Comme nts HEMOGLOBIN A1c (test code = 41531) 9.1 % COMPREHENSIVE METABOLIC [id number] 00:00:00* Test Item Value Reference Range Interpretation Comme nts GLUCOSE (test code = 2217) 176 MG/DL BUN (test code = 2208) 15 MG/DL CREATININE (test code = 2214) 0.70 MG/DL eGFR AMER. (test cod e = 77928) 123 ML/MIN/1.73 eGFR NON- AMER. (test code = 32959) 106 ML/MIN/1.73 CALC BUN/CREAT (test code = 2235) 21 RATIO SODIUM (test code = 2231) 138 MEQ/L POTASSIUM (test code = 2228) 4.6 MEQ/L CHLORIDE (test code = 2215) 102 MEQ/L CARBON DIOXIDE (test code = 2206) 26 MEQ/L CALCIUM (test code = 2209) 9.6 MG/DL PROTEIN, TOTAL (test code = 2229) 7.0 G/DL ALBUMIN (test code = 2201) 4.5 G/DL CALC GLOBULIN (test code = 2240) 2.5 G/DL CALC A/G RATIO (test code = 2234) 1.8 RATIO BILIRUBIN, TOTAL (test code = 2207) 0.4 MG/DL ALKALINE PHOSPHATASE (test code = 2204) 78 U/L AST (test code = 2218) 19 U/L ALT (test code = 2219) 36 U/L Nick Wade AustinHEMOGLOBIN [id number] 00:00:00* Test Item Value Reference Range Interpretation Comme nts HEMOGLOBIN A1c (test code = 40491) 10.1 % Nick Wade AustinHEMOGLOBIN [id number] 00:00:00* Test Item Value Reference Range Interpretation Comme nts HEMOGLOBIN A1c (test code = 51588) 10.1 % HEMOGLOBIN [id number] 00:00:00* Test Item Value Reference Range Interpretation Comme nts HEMOGLOBIN A1c (test code = 44963) 10.1 % Nick Wade AustinHEMOGLOBIN [id number] 00:00:00* Test Item Value Reference Range Interpretation Comme nts HEMOGLOBIN A1c (test code = 47743) 10.1 % HEMOGLOBIN [id number] 00:00:00* Test Item Value Reference Range Interpretation Comme nts HEMOGLOBIN A1c (test code = 20199) 10.1 % Nick Wade AustinHEMOGLOBIN [id number] 00:00:00* Test Item Value Reference Range Interpretation Comme nts HEMOGLOBIN A1c (test code = 66593) 10.1 % HEMOGLOBIN [id number] 00:00:00* Test Item Value Reference Range Interpretation Comme nts HEMOGLOBIN A1c (test code = 54419) 10.1 % Nick Wade AustinLIPID [id number] 00:00:00* Test Item Value Reference Range Interpretation Comme nts CHOLESTEROL (test code = 2210) 226 MG/DL TRIGLYCERIDES (test code = 2232) 118 MG/DL HDL CHOLESTEROL (test code = 2220) 55 MG/DL CALC LDL CHOL (test code = 2237) 147 MG/DL RISK RATIO LDL/HDL (test cod e = 2238) 2.68 RATIO Nick Wade AustinHEMOGLOBIN [id number] 00:00:00* Test Item Value Reference Range Interpretation Comme nts HEMOGLOBIN A1c (test code = 61081) 10.1 % HEMOGLOBIN [id number] 00:00:00* Test Item Value Reference Range Interpretation Comme nts HEMOGLOBIN A1c (test code = 29196) 10.1 % Nick Wade AustinLIPID [id number] 00:00:00* Test Item Value Reference Range Interpretation Comme nts CHOLESTEROL (test code = 2210) 226 MG/DL TRIGLYCERIDES (test code = 2232) 118 MG/DL HDL CHOLESTEROL (test code = 2220) 55 MG/DL CALC LDL CHOL (test code = 2237) 147 MG/DL RISK RATIO LDL/HDL (test cod e = 2238) 2.68 RATIO LIPID [id number] 00:00:00* Test Item Value Reference Range Interpretation Comme nts CHOLESTEROL (test code = 2210) 226 MG/DL TRIGLYCERIDES (test code = 2232) 118 MG/DL HDL CHOLESTEROL (test code = 2220) 55 MG/DL CALC LDL CHOL (test code = 2237) 147 MG/DL RISK RATIO LDL/HDL (test cod e = 2238) 2.68 RATIO Nick Wade AustinHEMOGLOBIN [id number] 00:00:00* Test Item Value Reference Range Interpretation Comme nts HEMOGLOBIN A1c (test code = 52475) 10.1 % HEMOGLOBIN [id number] 00:00:00* Test Item Value Reference Range Interpretation Comme nts HEMOGLOBIN A1c (test code = 39878) 10.1 % Nick Wade AustinLIPID [id number] 00:00:00* Test Item Value Reference Range Interpretation Comme nts CHOLESTEROL (test code = 2210) 226 MG/DL TRIGLYCERIDES (test code = 2232) 118 MG/DL HDL CHOLESTEROL (test code = 2220) 55 MG/DL CALC LDL CHOL (test code = 2237) 147 MG/DL RISK RATIO LDL/HDL (test cod e = 2238) 2.68 RATIO HEMOGLOBIN [id number] 00:00:00* Test Item Value Reference Range Interpretation Comme nts HEMOGLOBIN A1c (test code = 71348) 10.1 % LIPID [id number] 00:00:00* Test Item Value Reference Range Interpretation Comme nts CHOLESTEROL (test code = 2210) 226 MG/DL TRIGLYCERIDES (test code = 2232) 118 MG/DL HDL CHOLESTEROL (test code = 2220) 55 MG/DL CALC LDL CHOL (test code = 2237) 147 MG/DL RISK RATIO LDL/HDL (test cod e = 2238) 2.68 RATIO LIPID [id number] 00:00:00* Test Item Value Reference Range Interpretation Comme nts CHOLESTEROL (test code = 2210) 226 MG/DL TRIGLYCERIDES (test code = 2232) 118 MG/DL HDL CHOLESTEROL (test code = 2220) 55 MG/DL CALC LDL CHOL (test code = 2237) 147 MG/DL RISK RATIO LDL/HDL (test cod e = 2238) 2.68 RATIO Nick Holliday
--- NOTE | 2024-07-08 19:21 | EDPHYS ---
Physician Documentation [facility] Name: Hammad Gutiérrez Age: 58 yrs Sex: Male : 1965 Arrival Date: 07/08/2024 Time: 19:03 Bed 15 Private MD: ED Physician Kevin Sterling HPI: 07/08 19:19 This 58 yrs old Male presents to ER via Unassigned with complaints of Flank sp3 Pain - right. 19:19 58-year-old male presents with right flank pain for 2 days, worse today. Patient is sp3 ambulatory and in no acute distress. Vital signs were not abnormal. I discussed with patient that he will need a CT scan and that we will not be able to perform 1 here but I would be happy to transfer him to appropriate facility to try and get it done. Patient likes to go to a different facility locally to obtain that. I informed him that he may return at any time if he changes his mind or they are unable to do it. Patient is leaving on his own volition. He understands risks including , disability, pain and suffering, loss of function, etc. in case there is an adverse event. He understands this risk and deems it to be low and he will go to a different facility via private vehicle.. Historical: - Allergies: 19:26 No Known Allergies; jb4 - PMHx: 19:26 DM; jb4 - PSHx: 19:26 None; jb4 - Immunization history:: Adult Immunizations not up to date. - Infectious Disease History:: Denies. - Social history:: Smoking status: Patient denies any tobacco usage or history of. Patient uses alcohol, only on a social basis. Vital Signs: 19:22 BP 152 / 88; Pulse 88; Resp 16; Pulse Ox 100% on R/A; Weight 85.28 kg (R); Height 5 ft. jb4 7 in. ; Pain 2/10; 19:22 Body Mass Index 29.44 (85.28 kg, 170.18 cm) jb4 19:22 Pain Scale: Adult jb4 MDM: 19:18 Medical Screening Exam initiated sp3 19:20 ED course: See HPI.. sp3 Administered Medications: No medications were administered Disposition Summary: 07/08/24 19:20 Discharge Ordered Notes: Location: Home sp3 Condition: Undetermined sp3 Diagnosis - Flank pain sp3 Followup: sp3 - With: Emergency Department - When: Immediately - Reason: Forms: - Medication Reconciliation Form sp3 - Antibiotic Education sp3 - Prescription Opioid Use sp3 - Patient Portal Instructions sp3 - Leadership Thank You Letter sp3 Signatures: Abraham Sainz RN RN jb4 Kevin Sterling MD MD sp3 Corrections: (The following items were deleted from the chart) 19:29 19:19 58-year-old male presents with right flank pain for 2 days, worse today. Patient sp3 is ambulatory and in no acute distress. Vital signs were not abnormal. I discussed with patient that he will need a CT scan and that we will not be able to perform 1 here but I would be happy to transfer him to appropriate facility to try and get it done. Patient likes to go to a different facility locally to obtain that. I informed him that he may return at any time if he changes his mind or they are unable to do it. Patient is leaving on his own volition. He understands risks including , disability, pain and suffering, loss of function, etc. in case there is an adverse event. He understands this risk and deems it to be low and he will go to a different facility via private vehicle.. sp3
--- NOTE | 2024-07-08 19:32 | ER ---
Nurse's Notes [facility] Name: Hammad Gutiérrez Age: 58 yrs Sex: Male : 1965 Arrival Date: 07/08/2024 Time: 19:03 Bed 15 Private MD: Diagnosis: Flank pain Presentation: 07/08 19:22 Chief complaint: Patient states: I am having right upper flank pain that started last jb4 night. Coronavirus screen: At this time, the client does not indicate any symptoms associated with coronavirus-19. Ebola Screen: No symptoms or risks identified at this time. Initial Sepsis Screen: Does the patient meet any 2 criteria? No. Patient's initial sepsis screen is negative. Does the patient have a suspected source of infection? No. Patient's initial sepsis screen is negative. Risk Assessment: Do you want to hurt yourself or someone else? Patient reports no desire to harm self or others. Onset of symptoms was July 08, 2024. Transition of care: patient was not received from another setting of care. 19:22 Method Of Arrival: Ambulatory jb4 19:22 Acuity: GEETA 3 jb4 Triage Assessment: 19:26 General: Appears in no apparent distress. comfortable, Behavior is calm, cooperative, jb4 appropriate for age. Pain: Complains of pain in anterior aspect of right lateral abdomen Pain does not radiate. Pain currently is 2 out of 10 on a pain scale. Neuro: Level of Consciousness is awake, alert, obeys commands, Oriented to person, place, time, situation. Cardiovascular: Patient's skin is warm and dry. Respiratory: Airway is patent Respiratory effort is even, unlabored, Respiratory pattern is regular, symmetrical. Derm: Skin is intact, Skin is pink, warm \T\ dry. Musculoskeletal: Circulation, motion, and sensation intact. Historical: - Allergies: 19:26 No Known Allergies; jb4 - PMHx: 19:26 DM; jb4 - PSHx: 19:26 None; jb4 - Immunization history:: Adult Immunizations not up to date. - Infectious Disease History:: Denies. - Social history:: Smoking status: Patient denies any tobacco usage or history of. Patient uses alcohol, only on a social basis. Screenin:30 [facility] ED Fall Risk Assessment (Adult) History of falling in the last 3 months, jb4 including since admission No falls in past 3 months (0 pts) Confusion or Disorientation No (0 pts) Intoxicated or Sedated No (0 pts) Impaired Gait No (0 pts) Mobility Assist Device Used No (0 pt) Altered Elimination No (0 pt) Score/Fall Risk Level 0 - 2 = Low Risk Oriented to surroundings, Maintained a safe environment. Abuse screen: Denies threats or abuse. Nutritional screening: No deficits noted. Tuberculosis screening: No symptoms or risk factors identified. Assessment: 19:30 Reassessment: Provider notified pt CT scanner is down and that he would need a CT, gave jb4 the pt the option to stay to be transferred or leave. Pt decided to go elsewhere. Vital Signs: 19:22 BP 152 / 88; Pulse 88; Resp 16; Pulse Ox 100% on R/A; Weight 85.28 kg (R); Height 5 ft. jb4 7 in. ; Pain 2/10; 19:22 Body Mass Index 29.44 (85.28 kg, 170.18 cm) jb4 19:22 Pain Scale: Adult jb4 ED Course: 19:06 Patient arrived in ED. ra3 19:14 Kevin Sterling MD is Attending Physician. sp3 19:25 Triage completed. jb4 19:26 Arm band placed on right wrist. jb4 19:30 Patient has correct armband on for positive identification. Bed in low position. Call jb4 light in reach. Side rails up X 1. Provided Education on: plan of care. 19:30 No provider procedures requiring assistance completed. Patient did not have IV access jb4 during this emergency room visit. Administered Medications: No medications were administered Medication: 19:30 VIS not applicable for this client. jb4 Outcome: 19:20 Discharge ordered by . sp3 19:30 Medical screen evaluation completed per provider. Patient declined treatment. jb4 19:30 Condition: unchanged 19:30 Following a medical screening exam, the patient was provided information regarding alternative care sites and resources available per registration personnel. 19:31 Patient left the ED. jb4 Signatures: Abraham Sainz, RN RN jb4 Kevin Sterling MD MD sp3 Katty Romano ra3
== END 2024-07-08 19:31 | disposition home or self-care (01) ==
LOC: ER 19:03
DX: R10.9 Unspecified abdominal pain (principal)
CPT/HCPCS: 99281